=== PATIENT | female | born 1970 | race Caucasian/White ===

== ENCOUNTER → 2020-10-25 16:12 | Outpatient (BNVA) | payer OTHER, SELFPAY | PROVIDERS: PCP Physician Assistant; Visit Provider Nurse Practitioner ==

== ENCOUNTER 2021-04-03 08:32 | Outpatient (REF) | payer OTHER, SELFPAY ==
[2021-04-03 10:58] LABS: Hematocrit 39.6 % (37-47); Hemoglobin 13.2 g/dl (12.0-16.0); Mean Corpuscular HGB Conc 33.3 g/dl (31.0-35.0); Mean Corpuscular Hemoglobin 29.9 pg (27.0-33.0); Mean Corpuscular Volume 89.8 fL (80-98); Mean Platelet Volume 10.7 fL (9.4-12.3); Platelet Count 275 X10*3/uL (160-400); Red Blood Count 4.41 X10*6/uL (4.20-5.50); Red Cell Distribution Width 13.2 % (11.0-16.0); White Blood Count 7.3 X10*3/uL (4.8-10.8)
[2021-04-03 11:42] LABS: Alanine Aminotransferase 15 U/L (0-31); Albumin Level 4.1 g/dL (3.5-5.0); Alkaline Phosphatase 65 U/L (39-117); Anion Gap 11 (12-20); Aspartate Amino Transferase 14 U/L (5-31); Bilirubin Total 0.9 mg/dL (0.0-1.0); Blood Urea Nitrogen 9 mg/dL (9-16); Calcium 9.1 mg/dL (8.4-10.2); Carbon Dioxide 27 mmol/L (22-29); Chloride 106 mmol/L (96-108); Cholesterol 158 mg/dL; Estimated Glomerular Filt Rate > 60; Glucose Fasting 95 mg/dL (60-99); HDL Cholesterol 42 mg/dL; LDL Cholesterol Calculated 97 mg/dl; Potassium 4.8 mmol/L (3.3-5.1); Sodium 139 mmol/L (135-145); Total Protein 6.5 g/dL (6.5-8.0); Triglycerides 97 mg/dL
[2021-04-03 12:05] LABS: TSH reflex Free T4 2.17 uIU/mL (0.32-4.0)
== END 2021-04-03 08:33 | disposition home or self-care (01) ==
LOC: HO.WFDLDS 08:32
PROVIDERS: Visit Provider Physician Assistant
DX: I10 Essential (primary) hypertension (principal); Z13.1 Encounter for screening for diabetes mellitus; Z13.220 Encounter for screening for lipoid disorders; Z13.29 Encounter for screening for other suspected endocrine disorder
CPT/HCPCS: 36415; 80053; 80061; 84443; 85027

== ENCOUNTER 2021-04-06 10:16 | Outpatient (REF) | payer OTHER, SELFPAY ==
--- NOTE | ~2021-04-06 | MM_ITS ---
EXAMINATION: MM SCREENING DIGITAL BREAST TOMOSYNTHESIS, BILATERAL CLINICAL INFORMATION: Screening. Asymptomatic. The lifetime risk of breast cancer based on the Tyrer-Cuzick Model is 12%. COMPARISON: Mammography: 08/16/2019, 07/01/2018, 03/31/2017 TECHNIQUE: Digital breast tomosynthesis is performed in both the craniocaudal and mediolateral oblique views along with computer-aided detection (CAD). Synthesized 2D images are generated from the tomosynthesis. FINDINGS: There are scattered areas of fibroglandular density (ACR BI-RADS breast composition Category b). There are no significant masses, abnormal calcifications, or other abnormalities. Parenchymal pattern is similar to prior studies. No developing density. No significant changes. Skin contours are smooth. MM/MM tomosynthesis screening BI IMPRESSION: No mammographic evidence of malignancy. ASSESSMENT: BI-RADS 1: Negative RECOMMENDATION: Routine annual mammography screening. This patient's information was entered into a reminder system with a target due date for their next mammogram.
== END 2021-04-06 10:17 | disposition home or self-care (01) ==
LOC: HO.MAMMO 10:16
PROVIDERS: Visit Provider Internal Medicine
DX: Z12.31 Encounter for screening mammogram for malignant neoplasm of breast (principal)
CPT/HCPCS: 77063; 77067

== ENCOUNTER 2021-05-10 12:45 | Outpatient (REF) | payer OTHER, SELFPAY ==
[2021-05-10 19:02] LABS: Influenza A PCR NEGATIVE (Negative); Influenza B PCR NEGATIVE (Negative); Resp Syncy Virus RNA Qual PCR NEGATIVE (Negative); SARS COV2 PCR INHOUSE NEGATIVE (Negative)
== END 2021-05-10 12:46 | disposition home or self-care (01) ==
LOC: HO.LAB 12:45
PROVIDERS: Visit Provider Hospitalist
DX: Z20.822 Contact with and (suspected) exposure to COVID-19 (principal); J30.2 Other seasonal allergic rhinitis
CPT/HCPCS: 0241U; 36415

== ENCOUNTER 2021-05-15 14:15 | Outpatient (REF) | payer OTHER, SELFPAY | END 2021-05-15 14:16 | disposition home or self-care (01) | LOC: HO.LAB 14:15 | PROVIDERS: PCP Internal Medicine; Visit Provider Internal Medicine | DX: Z20.822 Contact with and (suspected) exposure to COVID-19 (principal) | CPT/HCPCS: C9803; U0003; U0005 ==

== ENCOUNTER → 2021-05-31 16:25 | Outpatient (BNVA) | payer OTHER, SELFPAY | PROVIDERS: PCP Internal Medicine; Visit Provider Nurse Practitioner ==

== ENCOUNTER 2021-12-04 11:28 | Outpatient (REF) | payer OTHER, SELFPAY ==
--- NOTE | ~2021-12-04 | XR_ITS ---
EXAMINATION: XR LUMBOSACRAL SPINE CLINICAL INFORMATION: Low back pain COMPARISON: 11/10/2008 TECHNIQUE: Three views of the lumbosacral spine. FINDINGS: No acute fracture or traumatic malalignment. Moderate loss of disc space height at L5-S1. Mild loss of disc space at L4-5. Small endplate osteophytes present throughout the lumbar spine. Moderate facet arthropathy present throughout the lumbar spine. Paraspinal soft tissues unremarkable. XR/XR lumbar spine 2-3V IMPRESSION: No acute fracture or traumatic malalignment. Lumbar spondylosis as described.
== END 2021-12-04 11:29 | disposition home or self-care (01) ==
LOC: HO.XRAY 11:28
PROVIDERS: PCP Internal Medicine; Visit Provider Nurse Practitioner Acute Care
DX: M54.50 Low back pain, unspecified (principal)
CPT/HCPCS: 72100

== ENCOUNTER → 2022-01-15 07:54 | Outpatient (BNVA) | payer OTHER, SELFPAY | PROVIDERS: PCP Internal Medicine; Referring Provider Internal Medicine; Visit Provider Nurse Practitioner | DX: K21.9 Gastro-esophageal reflux disease without esophagitis (principal) ==

== ENCOUNTER 2022-04-10 13:50 | Outpatient (REF) | payer OTHER, SELFPAY ==
--- NOTE | ~2022-04-10 | MM_ITS ---
EXAMINATION: MM SCREENING DIGITAL BREAST TOMOSYNTHESIS, BILATERAL CLINICAL INFORMATION: Screening. Asymptomatic. The lifetime risk of breast cancer based on the Tyrer-Cuzick Model is 13.7%. COMPARISON: Mammography: April 06, 2021 and studies dating back to March 28, 2016 TECHNIQUE: Digital breast tomosynthesis is performed in both the craniocaudal and mediolateral oblique views along with computer-aided detection (CAD). Synthesized 2D images are generated from the tomosynthesis. FINDINGS: There are scattered areas of fibroglandular density (ACR BI-RADS breast composition Category b). There are no significant masses, abnormal calcifications, or other abnormalities. MM/MM tomosynthesis screening BI IMPRESSION: No significant changes from prior exam. ASSESSMENT: BI-RADS 1: Negative RECOMMENDATION: Routine annual mammography screening. This patient's information was entered into a reminder system with a target due date for their next mammogram.
== END 2022-04-10 13:51 | disposition home or self-care (01) ==
LOC: HO.MAMMO 13:50
PROVIDERS: PCP Internal Medicine; Visit Provider Internal Medicine
DX: Z12.31 Encounter for screening mammogram for malignant neoplasm of breast (principal)
CPT/HCPCS: 77063; 77067

== ENCOUNTER 2022-08-01 08:38 | Outpatient (REF) | payer OTHER, SELFPAY ==
[2022-08-01 11:14] LABS: MANUAL DIFF FLAG NO
[2022-08-01 11:29] LABS: Appearance Urine Turbid; Color Urine Dark Yellow; Glucose Urine UA Negative (Negative); Leukocyte Esterase Urine Small (1+) (Negative); Nitrite Urine Negative (Negative); PH 5.5 (5.0-9.0); Specific Gravity - Urine >= 1.030 (1.005-1.025); UMIC TRIGGER UA YES; Urine Blood Negative (Negative); Urine Ketones 15 mg/dL (Negative); Urine Protein Trace mg/dL (Neg-Trace)
[2022-08-01 11:36] LABS: Bacteria Urine 1+ (None Seen); Hyaline Casts Urine 0-2 /LPF (0-2)
[2022-08-01 11:38] LABS: Basophils Absolute Auto 0.1 X10*3/uL (0.0-0.2); Basophils Percent Auto 1.1 % (0-2); Eosinophils Absolute Auto 0.1 X10*3/uL (0.0-0.4); Eosinophils Percent Auto 1.1 % (0-4); Hematocrit 40.7 % (37.0-47.0); Hemoglobin 13.7 g/dl (12.0-16.0); Imm Gran Abs Auto 0.02 X10*3/uL (0.00-0.03); Imm Gran Pct Auto 0.3 % (0.0-0.4); Immature Retic Fraction 7.6 % (3.0-15.9); Lymphocytes Absolute Auto 1.4 X10*3/uL (1.2-4.9); Lymphocytes Percent Auto 23.5 % (20-40); Mean Corpuscular HGB Conc 33.7 g/dl (31.0-35.0); Mean Corpuscular Hemoglobin 30.5 pg (27.0-33.0); Mean Corpuscular Volume 90.6 fL (80.0-98.0); Mean Platelet Volume 11.6 fL (9.4-12.3); Monocytes Absolute Auto 0.4 X10*3/uL (0.1-1.2); Monocytes Percent Auto 7.2 % (2-11); Neutrophils Absolute Auto 4.1 x10*3/uL (2.0-8.3); Neutrophils Percent Auto 66.8 % (45-73); Platelet Count 279 X10*3/uL (160-400); Red Blood Count 4.49 X10*6/uL (4.20-5.50); Red Cell Distribution Width 12.9 % (11.0-16.0); Retic HGB Equivalent 35.7 pg (30.0-35.0); Reticulocyte Percent 1.5 % (0.5-1.8); Reticulocytes Absolute 0.067 X10*6/uL (0.026-0.095); White Blood Count 6.1 X10*3/uL (4.8-10.8)
[2022-08-01 13:22] LABS: Folate 13.4 ng/mL (> or = 4.0); Vitamin B12 362 pg/mL (200-900)
[2022-08-01 13:32] LABS: Alanine Aminotransferase 19 U/L (0-31); Albumin Level 4.3 g/dL (3.5-5.0); Alkaline Phosphatase 59 U/L (39-117); Amylase 43 U/L (28-100); Anion Gap 13 (12-20); Aspartate Amino Transferase 17 U/L (5-31); Bilirubin Total 0.8 mg/dL (0.0-1.0); Blood Urea Nitrogen 8 mg/dL (9-16); Calcium 9.5 mg/dL (8.4-10.2); Carbon Dioxide 25 mmol/L (22-29); Chloride 107 mmol/L (96-108); Cholesterol 160 mg/dL; Estimated Glomerular Filt Rate > 60; Ferritin 69 ng/mL (10-250); Free T4 (Free Thyroxine) 0.99 ng/dL (0.71-1.85); Glucose Random 93 mg/dL (60-115); HDL Cholesterol 33 mg/dL; Iron 112 mcg/dL (30-160); LDL Cholesterol Calculated 110 mg/dl; Percent Iron Saturation 36 % (15-50); Potassium 5.1 mmol/L (3.3-5.1); Sodium 140 mmol/L (135-145); Thyroid Stimulating Hormone 2.88 uIU/mL (0.32-4.0); Total Iron Binding Capacity 312 mcg/dL (228-428); Total Protein 6.7 g/dL (6.5-8.0); Triglycerides 85 mg/dL; Unsaturated Iron Binding 200 ug/dL; Uric Acid 6.4 mg/dL (2.4-5.7); Vitamin D 25-OH Total 34.8 ng/mL (>30)
== END 2022-08-01 08:39 | disposition home or self-care (01) ==
LOC: HO.WFDLDS 08:38
PROVIDERS: Visit Provider Internal Medicine
DX: K21.9 Gastro-esophageal reflux disease without esophagitis (principal); N92.0 Excessive and frequent menstruation with regular cycle; E78.00 Pure hypercholesterolemia, unspecified
CPT/HCPCS: 36415; 80053; 80061; 81001; 82150; 82306; 82607; 82728; 82746; 83540; 84439; 84443; 84550; 85025; 85045

== ENCOUNTER → 2023-01-16 15:24 | Outpatient (BNVA) | payer OTHER, SELFPAY | PROVIDERS: PCP Internal Medicine; Referring Provider Internal Medicine; Visit Provider Nurse Practitioner ==

== ENCOUNTER 2023-04-14 14:42 | Outpatient (REF) | payer OTHER, SELFPAY | END 2023-04-14 14:43 | disposition home or self-care (01) | LOC: HO.MAMMO 14:42 | PROVIDERS: PCP Internal Medicine; Visit Provider Internal Medicine | DX: Z12.31 Encounter for screening mammogram for malignant neoplasm of breast (principal) | CPT/HCPCS: 77063; 77067 ==

== ENCOUNTER → 2023-04-14 14:45 | Outpatient (BNV) | payer OTHER, SELFPAY | PROVIDERS: PCP Internal Medicine; Visit Provider Radiology Diagnostic Radiology | DX: Z12.31 Encounter for screening mammogram for malignant neoplasm of breast (principal) | CPT/HCPCS: 77063; 77067 ==

== ENCOUNTER 2023-07-03 08:33 | Outpatient (AMB) | payer OTHER, SELFPAY ==
[2023-07-03 08:40] VITALS: BP 122/70; PULSE 74; O2SAT 98
--- NOTE | 2023-07-03 08:40 | A.OFFPC_ITS ---
Vital Signs 07/03/23 08:40 Height 5 ft 6 in BMI Reason not done Patient refused/unable BP 122/70 Blood Pressure Location Lt brachial Position Sitting Pulse 74 Pulse Source Pulse Oximeter Pulse Oximetry (%) 98 Oxygen Delivery Method Room Air Intake Visit Reasons: physical Intake Note: Patient is feeling fatigue. 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 Allergies Penicillins [PENICILLINS] Allergy (Intermediate, Verified 07/03/23 08:41) RASH penicillin V Allergy (Unknown, Verified 07/03/23 08:41) rash Medication List - Last Reconciled 07/03/23 by Jose De Jesus Ken MD famotidine 40 mg PO DAILY multivitamin 1 tab PO DAILY naproxen 250 mg PO BID PRN norethindrone acetate 2.5 mg PO DAILY Tobacco use date assessed: 07/03/23 Dental Screening Dental Screen Date: 07/03/23 Did you have a dental visit in the last 12 months?: Yes Did you have a dental problem in the last 6 months where you did not have access to dental care?: No Was dental information given to patient?: Patient has dentist HPI physical HPI Details 53-year-old female with bilateral sensor ineural hearing loss, GERD, lumbar spondylosis coming in for physical exam. Last seen last year for physical. Blood work was requested patient's mammogram is up-to-date colonoscopy is up-to-date. Review of the notes was seen by the gastroen terologist January 2023 follow-up on GERD famotidine. Patient had menorrhagia and was seeing gynecology in October 2022 patient had a vaginal procedure/hysteroscopy dilatation curettaged by Dr. Steele still have regular menstruation , occ dizzy. tired all day sleepy when sitting down and after meal sleepy . [facility] Medical History (Updated 07/03/23 @ 09:05 by Jose De Jesus Ken MD) Blood pressure elevated without history of HTN Surgical History History of cochlear implant Hx of breast biopsy Hx of cholecystectomy History of colonoscopy History of esophagogastroduodenoscopy (EGD) Family History (Updated 07/03/23 @ 08:58 by Jose De Jesus Ken MD) Father Skin cancer Diabetes HTN (hypertension) FH: prostate cancer Mother Diabetes HTN (hypertension) Substance abuse Maternal Grandmother Diabetes Maternal Grandfather Diabetes Sister Substance abuse Social History (Updated 07/03/23 @ 08:59 by Jose De Jesus Ken MD) Housing: House Alcohol intake: current Alcohol intake frequency: does not drink Patient Tobacco Use Status: Never used Tobacco e-Cigarette/Vaping Use: Never Used Second Hand Smoke Exposure: No service: No Current occupational status: employed Current occupation: Teacher Cognitive needs: No Hearing needs: Yes (hearing aide) Vision needs: Yes (contact) Questionnaire PHQ-9 Over the last 2 weeks, how often have you been bothered by any of the following problems? 1. Little interest or pleasure in doing things: several days 2. Feeling down, depressed, or hopeless: several days 3. Trouble falling or staying asleep, or sleeping too much: not at all 4. Feeling tired or having little energy: not at all 5. Poor appetite or overeating: not at all 6. Feeling bad about yourself - or that you are a failure or have let yourself or your family down: not at all 7. Trouble concentrating on things, such as reading the newspaper or watching television: not at all 8. Moving or speaking so slowly that other people could have noticed. Or the opposite - being so fidgety or restless that you have been moving around a lot more than usual: not at all 9. Thoughts that you would be better off or of hurting yourself in some way: not at all Total score: 2 Depression Screening Interpretation: Negative Depression Screening Done: Yes Source: Developed by Drs. Anderson Moreno, Ananya Pringle, Alberto Eaton and colleagues, with an educational kelly from [employer]. Thrive Questionnaire Date Thrive assessed: 07/03/23 I am a: Patient What is your living situation today?: I have a steady place to live Within the past 12 months, did the food you bought not last and you didn't have the money to get more?: Never true Within the past 12 months, did you worry whether your food would run out before you got money to buy more?: Never true Do you have trouble paying for medicines?: No Do you have trouble getting transportation to medical appointments?: No Do you have trouble paying your heating and electricity bill?: No Do you have trouble taking care of your child, family member or friend?: No Do you have trouble with day-to-day activities such as bathing, preparing meals, shopping, managing finances, etc.?: No Are you currently unemployed and looking for a job?: No Are you interested in more education?: No Currently or been in a relationship where the following occur: no concerns reported AUDIT C Alcohol Use Questionnaire (AUDIT-C) 1. How often do you have a drink containing alcohol?: Monthly or less Total Score: 1 Score Reviewed/Action Taken: Yes (reviewed, no action needed at this time) ЮЛИЯ-7 AMB Questionnaire ЮЛИЯ-7 Date ЮЛИЯ - 7 assessed: 07/03/23 Feeling nervous, anxious, or on edge: 0 = Not at all Not being able to stop or control worryin = Not at all Worrying too much about different things: 0 = Not at all Trouble relaxin = Not at all Being so restless that it is hard to sit still: 0 = Not at all Becoming easily annoyed or irritable: 0 = Not at all Feeling afraid as if something awful might happen: 0 = Not at all Total ЮЛИЯ-7 score (0-4 normal; 5-9 mild; 10-14 moderate; 15-21 severe): 0 Source: Developed by Drs. Anderson Moreno, Ananya Pringle, Alberto Eaton and colleagues, with an educational kelly from [employer]. ЮЛИЯ-7 Assessment Billing ЮЛИЯ-7 Assessment Tool: ЮЛИЯ-7 Assessment 18214 Review of Systems Const Denies poor appetite and Denies weakness Eyes Denies no additional complaints ENT Reports Normal hearing present, Denies dizziness, Denies nasal congestion, Denies tinnitus and Denies sore throat Card Denies chest pain, Denies syncope, Denies rapid heart rate and Denies dyspnea Resp Denies cough and Denies dyspnea GI Denies change in stool character, Reports constipation, Denies diarrhea, Denies nausea and Denies vomiting Denies urinary frequency, Denies difficulty voiding and Denies dysuria Neuro Reports Normal hearing present, Denies confusion, Denies dizziness, Denies syncope and Denies weakness Psych Denies confusion Physical exam (Primary Care) Vital Signs: Last Vital Signs Pulse 74 07/03/23 08:40 BP 122/70 07/03/23 08:40 Pulse Ox 98 07/03/23 08:40 Oxygen Delivery Method Room Air 07/03/23 08:40 Tobacco/Smoking Status: Tobacco use Status Tobacco use date assessed 07/03/23 07/03/23 08:46 Patient Tobacco Use Status Never used Tobacco 07/03/23 08:59 e-Cigarette/Vaping Use Never Used 07/03/23 08:59 PHQ-9: PHQ-9 Score PHQ-9: Total score 2 07/03/23 08:49 Depression Screening Interpretation: Negative Thrive Assessment: Date of Thrive Assessment Date Thrive assessed 07/03/23 07/03/23 08:46 Currently or been in a relationship where the following occur: no concerns reported Const General: No confusion Orientation/consciousness: No confusion HENMT Head: Yes normocephalic Ears: external ears normal and TM's normal bilaterally Face and sinus: Yes normal facial exam Mouth: moist mucous membranes Throat: Yes tonsils normal Eyes Conjunctivae: conjunctivae normal Pupils: Equal, round and reactive pupils present and Pupil accommodation reflex normal Direct Ophthalmoscopy: normal light reflex Neck Neck: No lymphadenopathy Thyroid: Thyroid normal Chest Chest palpation & inspection: normal inspection of the chest Resp Effort & Inspection: normal respiratory effort and no audible wheezes Auscultation: clear to auscultation bilaterally, no crackles, no wheezes and lung sounds not diminished Cardio Rate: regular rate Rhythm: regular rhythm Peripheral pulses: radial pulses present and dorsalis pedis present GI Palpation (GI): no masses Auscultation: normal bowel sounds and normoactive bowel sounds Rectal Exam - Female: deferred Skin General skin exam: no rashes or lesions noted Rashes: no rashes Neuro General: No confusion Cranial nerves: Yes Equal, round and reactive pupils present and Yes Normal hearing present Cognition (Neuro): normal cognition Gait exam (Neuro): Normal gait present Motor exam (neuro): 5/5 motor strength present throughout Deep tendon reflexes (DTR's): Right brachioradialis reflex intensity grade: 2+, Left brachioradialis reflex intensity grade: 2+, Right patellar reflex intensity grade: 2+ and Left patellar reflex intensity grade: 2+ Extrem General: No edema Immunizations Boostrix Tdap 2.5 Lf unit-8 mcg-5 Lf/0.5 mL intramuscular syringe Performing Provider: Jose De Jesus Ken MD Per[facility] Administered by: Maite Kent CMA on 07/03/23 09:22 Dose Route Admin Location Dispensed Lot Number Expiration Date NDC Practice Assistant 0.5 mL IM Left Deltoid 0.5 mL [id number] 07/23/25 37967-536-71 [employer] VIS Given Date VIS Provided VIS Publication Date 07/03/23 Single Vaccine 21 Eligibility Eligibility Date Funding Source Not [facility] Eligible 07/03/23 Private Assessment and Plan Assessment & Plan (1) Annual physical exam: Code(s): Z00.00 - Encounter for general adult medical examination without abnormal findings (2) GERD (gastroesophageal reflux disease): Code(s): K21.9 - Gastro-esophageal reflux disease without esophagitis Qualifiers: Esophagitis presence: without esophagitis Qualified Code(s): K21.9 - Gastro-esophageal reflux disease without esophagitis Plan: Avoid the foods that causes that usually spicy foods, tomato products, juices, coffee, soda and foods that your sensitive to. After eating do not lie down, allow 3-4 hours before in lie down. And keep the head of bed above 30 degrees to avoid the acid from going up. (3) Menorrhagia: Code(s): N92.0 - Excessive and frequent menstruation with regular cycle Plan: Patient had a D&C October 2022 and follows up with Gynecology (4) Hypersomnia: Code(s): G47.10 - Hypersomnia, unspecified (5) Chest pressure: Code(s): R07.89 - Other chest pain Orders: Orders RT home sleep study Today G47.10 - Hypersomnia, unspecified ECG 12 lead EKG Today R07.89 - Other chest pain Complete Blood Count Auto Diff Today K21.9 - Gastro-esophageal reflux disease without esophagitis Comprehensive Met. Panel Today K21.9 - Gastro-esophageal reflux disease without esophagitis Free T4 (Free Thyroxine) Today K21.9 - Gastro-esophageal reflux disease without esophagitis Lipid Panel Today E78.00 - Pure hypercholesterolemia, unspecified, K21.9 - Gastro-esophageal reflux disease without esophagitis Vitamin D 25-OH Total Today K21.9 - Gastro-esophageal reflux disease without esophagitis Ferritin Today K21.9 - Gastro-esophageal reflux disease without esophagitis IRON PROFILE Today K21.9 - Gastro-esophageal reflux disease without esophagitis CA stress test Today R07.89 - Other chest pain Thyroid Stimulating Hormone Today K21.9 - Gastro-esophageal reflux disease w ithout esophagitis Vitamin B12 and Folate Today K21.9 - Gastro-esophageal reflux disease without esophagitis Magnesium Today K21.9 - Gastro-esophageal reflux disease without esophagitis Reticulocyte Count Today K21.9 - Gastro-esophageal reflux disease without esophagitis UA CC w/rflx Micro + Cult Today K21.9 - Gastro-esophageal reflux disease without esophagitis, R30.0 - Dysuria TDaP Immunization Today Z23 - Encounter for immunization Medications: New ammonium lactate 12% 1 appl topical DAILY 400 grams 0RF K21.9 - Gastro- esophageal reflux disease without esophagitis Coding Level of Care Code Est Pt Prev Care 40-64y(73201) Diagnoses Annual physical exam Z00.00 Gastroesophageal reflux disease without esophagitis K21.9 Esophagitis presence: without esophagitis Menorrhagia N92.0 Hypersomnia G47.10 Chest pressure R07.89 Additional Codes ЮЛИЯ-7 Assessment Billing - ЮЛИЯ-7 Assessment Tool: ЮЛИЯ-7 Assessment 82902 ([id number]) PHQ-9 - 77087 - PHQ-9 Billing: ([id number])
== END 2023-07-03 09:27 | disposition home or self-care (01) ==
PROVIDERS: PCP Internal Medicine; Visit Provider Internal Medicine
DX: Z00.00 Encounter for general adult medical examination without abnormal findings (principal); K21.9 Gastro-esophageal reflux disease without esophagitis; N92.0 Excessive and frequent menstruation with regular cycle; Z23 Encounter for immunization; G47.10 Hypersomnia, unspecified; R07.89 Other chest pain
CPT/HCPCS: 90471; 90715; 99396

== ENCOUNTER 2023-07-03 09:31 | Outpatient (REF) | payer OTHER, SELFPAY ==
[2023-07-03 09:55] LABS: MANUAL DIFF FLAG NO
[2023-07-03 10:26] LABS: Appearance Urine Clear; Color Urine Yellow; Glucose Urine UA Negative (Negative); Leukocyte Esterase Urine Trace (Negative); Nitrite Urine Negative (Negative); PH 6.5 (5.0-9.0); UMIC TRIGGER UACC YES; Urine Blood Negative (Negative); Urine Ketones Negative (Negative); Urine Protein Negative (Neg-Trace)
[2023-07-03 10:28] LABS: Basophils Absolute Auto 0.1 X10*3/uL (0.0-0.2); Basophils Percent Auto 1.3 % (0-2); Eosinophils Absolute Auto 0.1 X10*3/uL (0.0-0.4); Hematocrit 43.9 % (37.0-47.0); Hemoglobin 14.5 g/dl (12.0-16.0); Imm Gran Abs Auto 0.02 X10*3/uL (0.00-0.03); Imm Gran Pct Auto 0.3 % (0.0-0.4); Immature Retic Fraction 6.9 % (3.0-15.9); Lymphocytes Absolute Auto 1.6 X10*3/uL (1.2-4.9); Lymphocytes Percent Auto 25.9 % (20-40); Mean Corpuscular Hemoglobin 29.6 pg (27.0-33.0); Mean Corpuscular Volume 89.6 fL (80.0-98.0); Monocytes Absolute Auto 0.5 X10*3/uL (0.1-1.2); Monocytes Percent Auto 7.6 % (2-11); Neutrophils Absolute Auto 3.8 x10*3/uL (2.0-8.3); Neutrophils Percent Auto 62.9 % (45-73); Platelet Count 258 X10*3/uL (160-400); RET ABN SCTR 1; Red Cell Distribution Width 12.9 % (11.0-16.0); Reticulocytes Absolute 0.073 X10*6/uL (0.026-0.095); White Blood Count 6.1 X10*3/uL (4.8-10.8)
[2023-07-03 10:29] LABS: Reticulocyte Percent 1.5 % (0.5-1.8)
[2023-07-03 10:30] LABS: Bacteria Urine None Seen (None Seen); Hyaline Casts Urine 0-2 /LPF (0-2); WBC Urine 0-5 /HPF (0-5)
[2023-07-03 11:01] LABS: Alanine Aminotransferase 22 U/L (0-31); Albumin Level 4.2 g/dL (3.5-5.0); Alkaline Phosphatase 87 U/L (39-117); Anion Gap 10 (12-20); Aspartate Amino Transferase 18 U/L (5-31); Bilirubin Total 0.4 mg/dL (0.0-1.0); Blood Urea Nitrogen 10 mg/dL (9-16); Calcium 9.5 mg/dL (8.4-10.2); Carbon Dioxide 26 mmol/L (22-29); Chloride 109 mmol/L (96-108); Cholesterol 168 mg/dL (<200); Estimated Glomerular Filt Rate > 60; Glucose Random 94 mg/dL (60-115); HDL Cholesterol 48 mg/dL (>40); Iron 82 mcg/dL (30-160); LDL Cholesterol Calculated 105 mg/dL (<100); Magnesium 2.1 mg/dL (1.6-2.6); Percent Iron Saturation 30 % (15-50); Potassium 4.5 mmol/L (3.3-5.1); Sodium 140 mmol/L (135-145); Total Iron Binding Capacity 276 mcg/dL (228-428); Total Protein 7.2 g/dL (6.5-8.0); Triglycerides 75 mg/dL (<150); Unsaturated Iron Binding 194 ug/dL
[2023-07-03 11:10] LABS: Ferritin 61 ng/mL (10-250); Free T4 (Free Thyroxine) 0.77 ng/dL (0.71-1.85); Thyroid Stimulating Hormone 2.76 uIU/mL (0.32-4.0); Vitamin D 25-OH Total 37.5 ng/mL (>30)
[2023-07-03 11:22] LABS: Folate 16.9 ng/mL (> or = 4.0); Vitamin B12 445 pg/mL (200-900)
== END 2023-07-03 09:32 | disposition home or self-care (01) ==
LOC: HO.LAB 09:31
PROVIDERS: PCP Internal Medicine; Visit Provider Internal Medicine
DX: K21.9 Gastro-esophageal reflux disease without esophagitis (principal); E78.00 Pure hypercholesterolemia, unspecified; D64.9 Anemia, unspecified; E55.9 Vitamin D deficiency, unspecified
CPT/HCPCS: 36415; 80053; 80061; 81001; 82306; 82607; 82728; 82746; 83540; 83735; 84439; 84443; 85025; 85045

== ENCOUNTER → 2023-08-20 15:51 | Outpatient (REF) | payer OTHER, SELFPAY | LOC: HO.SL 15:51 | PROVIDERS: PCP Internal Medicine; Visit Provider Internal Medicine | DX: G47.33 Obstructive sleep apnea (adult) (pediatric) (principal); G47.10 Hypersomnia, unspecified | CPT/HCPCS: 95806 ==

== ENCOUNTER → 2023-08-20 16:00 | Outpatient (BNV) | payer OTHER, SELFPAY | PROVIDERS: PCP Internal Medicine; Visit Provider Internal Medicine | DX: G47.33 Obstructive sleep apnea (adult) (pediatric) (principal) | CPT/HCPCS: 95806 ==

== ENCOUNTER 2023-10-29 14:59 | Outpatient (AMB) | payer OTHER, SELFPAY ==
--- NOTE | 2023-10-29 15:02 | MHC.OFFVIS ---
Intake Vital Signs 10/29/23 15:03 Height 5 ft 6 in BMI Reason not done Patient refused/unable BP 129/73 Blood Pressure Location Lt brachial Position Sitting Pulse 95 Pulse Source Pulse Oximeter Intake Visit Reasons: 6 month follow up Intake Note: Pt presents to the office today for a 6 month follow up for constipation. She states she is feeling well. She states her bowel movements are more normal now and she has a bowel movement everyday. Pt denies any other GI concerns. Allergies Penicillins [PENICILLINS] Allergy (Intermediate, Verified 10/29/23 15:05) RASH penicillin V Allergy (Unknown, Verified 10/29/23 15:05) rash HPI 6 month follow up HPI Details Assessment & Plan (1) GERD (gastroesophageal reflux disease): Code(s): K21.9 - Gastro-esophageal reflux disease without esophagitis Qualifiers: Esophagitis presence: without esophagitis Qualified Code(s): K21.9 - Gastro-esophageal reflux disease without esophagitis Plan: She is concerned taht she needs another colonoscopy - but she is concerned about her CIC and LLQ discomfort. We discuss that this is not an indication fo rscope and she had one in 2018. She has had longstanding constipation an although she moves her bowels every day she will frequently have incomplete evacuation. We discussed trying laxatives for this on a more regular basis in the past but she has been quite reluctant to do this. I explained that a colonoscopy is not diagnostic for pain in this area and it is more likely that she is having cramping or spasm of the colon when too much of a stool burden builds up. Discuss smooth move tea and senna - she uses dulcolax about once a month. I think the using something more gentle more frequently will probably help her with her discomfort in the left lower quadrant. She continues on her famotidine at bedtime but would like to try cutting back on this and I tell her to take it every other day and if she can she can wean completely off of it is only use it as needed when she eats and offending food. ROV 6 mos. (2) Oropharyngeal dysphagia: Comment: No further problems since we started treating her with acid reducing medication so this likely with esophageal spasm Code(s): R13.12 - Dysphagia, oropharyngeal phase (3) Constipation: Code(s): K59.00 - Constipation, unspecified TODAY'S VISIT She did buy the smooth move tea and a trial of senna but she feels that she does not need them since she moves her bowels once a day. She still has a feeling of discomfort in still has the idea that she has a ?hole? in her colon and I explained to her it is not a whole but a pouching that is quite common as we age. She does not have this sensation of discomfort or pain every day but did have it once when she was walking to her mailbox which is pretty nondescriptive. She does have moderate diverticulosis on her 2018 colonoscopy and I let know that doing another colonoscopy is not likely to uncover any more information. Will get a CT scan just to see if she has any signs of inflammation or other concerning features. I think that a trial of dicyclomine when she has the discomfort would be helpful to her since it likely is bowel cramping/spasm which is quite calm in the left lower quadrant. She continues to do well on the famotidine for GERD. Return office visit after the CT scan. [facility] Medical History Annual physical exam Pain in left lumbar region of back Blood pressure elevated without history of HTN Surgical History History of cochlear implant Hx of breast biopsy Hx of cholecystectomy History of colonoscopy History of esophagogastroduodenoscopy (EGD) Family History Father Skin cancer Diabetes HTN (hypertension) FH: prostate cancer Mother Diabetes HTN (hypertension) Substance abuse Maternal Grandmother Diabetes Maternal Grandfather Diabetes Sister Substance abuse Social History Housing: House Alcohol intake: current Alcohol intake frequency: does not drink Patient Tobacco Use Status: Never used Tobacco e-Cigarette/Vaping Use: Never Used Second Hand Smoke Exposure: No service: No Current occupational status: employed Current occupation: Teacher Cognitive needs: No Hearing needs: Yes (hearing aide) Vision needs: Yes (contact) Review of Systems Const Denies fatigue, Denies fever(s), Denies night sweats, Denies poor appetite and Denies weight loss ENT Reports Normal hearing present, Denies dental pain, Denies dysphagia, Denies hearing loss, Denies mouth pain, Denies odynophagia, Denies throat swelling, Denies tongue swelling and Reports other (Dentition adequate) Card Reports no additional complaints Resp Reports no additional complaints GI Details: Reports abdominal pain, Denies melena, Denies bloating, Denies hematochezia, Denies constipation, Denies GI cramping, Denies dysphagia, Denies excessive flatus, Denies early satiety, Reports heartburn, Denies diarrhea, Denies nausea, Denies odynophagia, Denies vomiting and Denies hematemesis Skin/Breast Denies pruritus, Denies lesions, Denies rash and Denies jaundice Neuro Reports Normal hearing present and Denies Abnormal speech present Endo Denies fatigue Aller/Immun Denies throat swelling and Denies tongue swelling Physical Exam Vital Signs: Last Vital Signs Pulse 95 10/29/23 15:03 BP 129/73 10/29/23 15:03 Const General: cooperative, no acute distress, well developed and well groomed Nutritional Appearance: well nourished and obese Orientation/consciousness: oriented to person, oriented to place and oriented to time Limitations: No language barrier HEENT Head: Yes normocephalic and Yes atraumatic Eyes General: appearance normal, both eyes and all related structures Pupils: Equal, round and reactive pupils present Neck Neck: Yes normal visual inspection and Yes no lymphadenopathy Thyroid: Thyroid normal Resp Effort & Inspection: normal respiratory effort and able to speak in complete sentences Auscultation: clear to auscultation bilaterally Cardio Rate: regular rate Rhythm: regular rhythm Heart sounds: Normal, physiologic split S2 sound present Peripheral pulses: radial pulses present and posterior tibial pulses present GI Inspection: No distended, No Abdominal panniculus present and Yes obesity Palpation (GI): Soft to palpation, nontender, no guarding, not rigid and No hepatosplenomegaly present Percussion: Yes normal to percussion Auscultation: normal bowel sounds Rectal Exam - Female: deferred Skin General skin exam: no rashes or lesions noted, turgor normal, skin not dry, no jaundice, No spider nevi and no striae Rashes: no rashes Nails: normal Neuro General: oriented to person, oriented to place and oriented to time Cranial nerves: Yes Equal, round and reactive pupils present and Yes Normal hearing present Speech: No Abnormal speech present Extrem General: Yes normal to inspection, No clubbing, No cyanosis and No edema Psych Appearance: grossly normal and well kempt Mental Status: mental status grossly normal Speech and movement: Normal speech and movement present Affect: normal affect Attitude: cooperative Thought process: Normal thought process present and not confabulating Thought content: Normal thought content present Insight: Limited insight present (Psych) Judgement: Limited judgement present (Psych) Assessment & Plan Assessment & Plan (1) LLQ pain: Code(s): R10.32 - Left lower quadrant pain (2) Constipation: Code(s): K59.00 - Constipation, unspecified (3) GERD (gastroesophageal reflux disease): Code(s): K21.9 - Gastro-esophageal reflux disease without esophagitis Qualifiers: Esophagitis presence: without esophagitis Qualified Code(s): K21.9 - Gastro-esophageal reflux disease without esophagitis (4) Oropharyngeal dysphagia: Comment: No further problems since we started treating her with acid reducing medication so this likely with esophageal spasm Code(s): R13.12 - Dysphagia, oropharyngeal phase Plan She did buy the smooth move tea and a trial of senna but she feels that she does not need them since she moves her bowels once a day. She still has a feeling of discomfort in still has the idea that she has a ?hole? in her colon and I explained to her it is not a whole but a pouching that is quite common as we age. She does not have this sensation of discomfort or pain every day but did have it once when she was walking to her mailbox which is pretty nondescriptive. She does have moderate diverticulosis on her 2018 colonoscopy and I let know that doing another colonoscopy is not likely to uncover any more information. Will get a CT scan just to see if she has any signs of inflammation or other concerning features. I think that a trial of dicyclomine when she has the discomfort would be helpful to her since it likely is bowel cramping/spasm which is quite calm in the left lower quadrant. She continues to do well on the famotidine for GERD. Return office visit after the CT scan. Orders: Orders CT abdomen pelvis w IV con Today R10.32 - Left lower quadrant pain Creatinine Today R10.32 - Left lower quadrant pain Blood Urea Nitrogen Today R10.32 - Left lower quadrant pain Medications: New dicyclomine 20 mg PO QID 30 days PRN 120 tabs 1RF abdominal pain Refilled famotidine 40 mg PO DAILY 90 tabs 2RF K21.9 - Gastro-esophageal reflux disease without esophagitis, R13.12 - Dysphagia, oropharyngeal phase Coding Level of Care Code Est Pt Level 3 (26468) Diagnoses LLQ pain R10.32 Constipation K59.00 Gastroesophageal reflux disease without esophagitis K21.9 Esophagitis presence: without esophagitis Oropharyngeal dysphagia R13.12
[2023-10-29 15:03] VITALS: BP 129/73; PULSE 95
== END 2023-10-29 15:46 | disposition home or self-care (01) ==
PROVIDERS: PCP Internal Medicine; Visit Provider Nurse Practitioner
DX: R10.32 Left lower quadrant pain (principal); K59.00 Constipation, unspecified; K21.9 Gastro-esophageal reflux disease without esophagitis; R13.12 Dysphagia, oropharyngeal phase
CPT/HCPCS: 99213

== ENCOUNTER → 2023-10-29 14:59 | Outpatient (BNVA) | payer OTHER, SELFPAY | PROVIDERS: PCP Internal Medicine; Visit Provider Nurse Practitioner ==

== ENCOUNTER 2023-12-25 13:23 | Outpatient (REF) | payer OTHER, SELFPAY ==
--- NOTE | ~2023-12-25 | CT_ITS ---
EXAMINATION: CT ABDOMEN AND PELVIS WITH CONTRAST CLINICAL INFORMATION: Left lower quadrant pain. COMPARISON: Abdominal ultrasound 02/16/2018. TECHNIQUE: Multidetector volumetric images were obtained from the superior aspect of the liver through the pubic symphysis following administration 85 mL of Omnipaque 350 intravenous contrast. Sagittal and coronal reformatted images were obtained on the technologist's workstation. Oral contrast: Yes This CT examination was performed using dose optimization techniques as appropriate, variously including the following: *Automated exposure control *Adjustment of mA and/or kV according to patient size (this includes techniques or standardized protocols for targeted exams where dose is matched to indication/reason for exam; i.e. extremities or head) *Use of iterative reconstruction technique DLP: 735 mGy-cm FINDINGS: LUNG BASES: The visualized lung bases are unremarkable. LIVER, GALLBLADDER, AND BILIARY TREE: The liver is normal in size, shape, and attenuation. No focal hepatic lesion or biliary ductal dilatation is present. Cholecystectomy. PANCREAS: No discrete mass or ductal dilatation. SPLEEN: Unremarkable. ADRENAL GLANDS: No adrenal mass. KIDNEYS AND URETERS: The kidneys are normal in size, shape, and attenuation. No hydronephrosis, hydroureter, or calculi seen. There is a simple exophytic cyst from the anterior mid left kidney for which no imaging follow-up is recommended. No perinephric stranding. BLADDER: Unremarkable. GASTROINTESTINAL TRACT: The small and large bowel are normal in caliber. Moderate sigmoid diverticulosis without evidence of acute diverticulitis. ABDOMINAL WALL: Small fat-containing umbilical hernia. LYMPH NODES: No adenopathy. VASCULAR: No aortic aneurysm. PELVIC VISCERA: 2.6 cm benign cyst in the simple appearing cyst in the right ovary. No follow-up imaging is recommended. OSSEOUS STRUCTURES: Degenerative changes in the spine. CT/CT abdomen pelvis w IV con IMPRESSION: Moderate sigmoid diverticulosis without evidence of acute diverticulitis. Fleischner guidelines were followed.
[2023-12-25] MEDS: iohexoL 350 MG/ML 100 ML INFUS..BTL 85 ML IV (16:39)
[2023-12-25] MEDS: Barium Sulfate Oral (Mocha) 450 ML ORAL.SUSP 900 ML PO (16:40)
[2023-12-26 13:03] LABS: Creatinine POC 0.8 mg/dL (0.5-1.4); GFR POC > 60
== END 2023-12-25 13:24 | disposition home or self-care (01) ==
LOC: HO.CT 13:23
PROVIDERS: PCP Internal Medicine; Visit Provider Nurse Practitioner
DX: R10.32 Left lower quadrant pain (principal)
CPT/HCPCS: 74177; 82565; Q9967

== ENCOUNTER 2024-03-11 09:04 | Outpatient (AMB) | payer OTHER, SELFPAY ==
--- NOTE | 2024-03-11 09:07 | MHC.OFFVIS ---
Vital Signs 03/11/24 09:10 Height 5 ft 6 in BMI Reason not done Patient refused/unable BP 136/84 Blood Pressure Location Rt brachial Position Sitting Pulse 74 Pulse Source Pulse Oximeter Pulse Oximetry (%) 98 Oxygen Delivery Method Room Air Intake Visit Reasons: f/u diverticulosis Intake Note: Chana presents in office today for a scheduled FUV CC; Pt had CT scan performed as of 12/2023. Pt is also here to discuss sx and progress since last visit. Pt denies any new concerns or sx since their last visit. Pt states that they have remained stable. Pt also requests refill of famotidine. Lye Treater Required: No Allergies Penicillins [PENICILLINS] Allergy (Intermediate, Verified 03/11/24 09:09) RASH penicillin V Allergy (Unknown, Verified 03/11/24 09:09) rash HPI HPI f/u diverticulosis: Details: Assessment & Plan (1) LLQ pain: Code(s): R10.32 - Left lower quadrant pain (2) Constipation: Code(s): K59.00 - Constipation, unspecified (3) GERD (gastroesophageal reflux disease): Code(s): K21.9 - Gastro-esophageal reflux disease without esophagitis Qualifiers: Esophagitis presence: without esophagitis Qualified Code(s): K21.9 - Gastro-esophageal reflux disease without esophagitis (4) Oropharyngeal dysphagia: Comment: No further problems since we started treating her with acid reducing medication so this likely with esophageal spasm Code(s): R13.12 - Dysphagia, oropharyngeal phase Plan She did buy the smooth move tea and a trial of senna but she feels that she does not need them since she moves her bowels once a day. She still has a feeling of discomfort in still has the idea that she has a ?hole? in her colon and I explained to her it is not a whole but a pouching that is quite common as we age. She does not have this sensation of discomfort or pain every day but did have it once when she was walking to her mailbox which is pretty nondescriptive. She does have moderate diverticulosis on her 2018 colonoscopy and I let know that doing another colonoscopy is not likely to uncover any more information. Will get a CT scan just to see if she has any signs of inflammation or other concerning features. I think that a trial of dicyclomine when she has the discomfort would be helpful to her since it likely is bowel cramping/spasm which is quite calm in the left lower quadrant. She continues to do well on the famotidine for GERD. Return office visit after the CT scan. Orders: Orders CT abdomen pelvis w IV con Today R10.32 - Left lower quadrant pain Creatinine Today R10.32 - Left lower quadrant pain Blood Urea Nitrogen Today R10.32 - Left lower quadrant pain Medications: New dicyclomine 20 mg PO QID 30 days PRN 120 tabs 1RF abdominal pain Refilled famotidine 40 mg PO DAILY 90 tabs 2RF K21.9 - Gastro-esophageal reflux disease without esophagitis, R13.12 - Dysphagia, oropharyngeal phase Labs: CT abdomen and pelvis 01/13/24 FINDINGS: LUNG BASES: The visualized lung bases are unremarkable. LIVER, GALLBLADDER, AND BILIARY TREE: The liver is normal in size, shape, and attenuation. No focal hepatic lesion or biliary ductal dilatation is present. Cholecystectomy. PANCREAS: No discrete mass or ductal dilatation. SPLEEN: Unremarkable. ADRENAL GLANDS: No adrenal mass. KIDNEYS AND URETERS: The kidneys are normal in size, shape, and attenuation. No hydronephrosis, hydroureter, or calculi seen. There is a simple exophytic cyst from the anterior mid left kidney for which no imaging follow-up is recommended. No perinephric stranding. BLADDER: Unremarkable. GASTROINTESTINAL TRACT: The small and large bowel are normal in caliber. Moderate sigmoid diverticulosis without evidence of acute diverticulitis. ABDOMINAL WALL: Small fat-containing umbilical hernia. LYMPH NODES: No adenopathy. VASCULAR: No aortic aneurysm. PELVIC VISCERA: 2.6 cm benign cyst in the simple appearing cyst in the right ovary. No follow-up imaging is recommended. OSSEOUS STRUCTURES: Degenerative changes in the spine. CT/CT abdomen pelvis w IV con IMPRESSION: Moderate sigmoid diverticulosis without evidence of acute diverticulitis. TODAY'S VISIT She has not had the pain since her CT. She has taken the bentyl a couple of times, but does not remember if it helps. The CT is benign except for a very small ovarian cyst, so we decide to wait and watch. She will experiment with the bentyl. She continues on famotidine. ROV 3 mos or sooner if pain becomes severe. [facility], [facility] Medical History Annual physical exam Pain in left lumbar region of back Blood pressure elevated without history of HTN Surgical History History of cochlear implant Hx of breast biopsy Hx of cholecystectomy History of colonoscopy History of esophagogastroduodenoscopy (EGD) Family History Father Skin cancer Diabetes HTN (hypertension) FH: prostate cancer Mother Diabetes HTN (hypertension) Substance abuse Maternal Grandmother Diabetes Maternal Grandfather Diabetes Sister Substance abuse Social History Housing: House Alcohol intake: current Alcohol intake frequency: does not drink Patient Tobacco Use Status: Never used Tobacco e-Cigarette/Vaping Use: Never Used Second Hand Smoke Exposure: No service: No Current occupational status: employed Current occupation: Teacher Cognitive needs: No Hearing needs: Yes (hearing aide) Vision needs: Yes (contact) Review of Systems Const Denies fatigue, Denies fever(s), Denies night sweats, Denies poor appetite and Denies weight loss ENT Reports Normal hearing present, Denies dental pain, Denies dysphagia, Reports hearing loss, Denies mouth pain, Denies odynophagia, Denies throat swelling, Denies tongue swelling and Reports other (Dentition adequate) Card Reports no additional complaints Resp Reports no additional complaints GI Details: Denies abdominal pain, Denies melena, Denies bloating, Denies hematochezia, Denies constipation, Reports GI cramping, Denies dysphagia, Denies excessive flatus, Denies early satiety, Reports heartburn, Denies diarrhea, Denies nausea, Denies odynophagia, Denies vomiting and Denies hematemesis Skin/Breast Denies pruritus, Denies lesions, Denies rash and Denies jaundice Neuro Reports Normal hearing present and Denies Abnormal speech present Endo Denies fatigue Aller/Immun Denies throat swelling and Denies tongue swelling Physical Exam Vital Signs: Last Vital Signs Pulse 74 03/11/24 09:10 BP 136/84 03/11/24 09:10 Pulse Ox 98 03/11/24 09:10 Oxygen Delivery Method Room Air 03/11/24 09:10 Const General: cooperative, no acute distress, well developed and well groomed Nutritional Appearance: well nourished and obese Orientation/consciousness: oriented to person, oriented to place and oriented to time Limitations: No language barrier and other limitations HEENT Head: Yes normocephalic and Yes atraumatic Eyes General: appearance normal, both eyes and all related structures Pupils: Equal, round and reactive pupils present Neck Neck: Yes normal visual inspection and Yes no lymphadenopathy Thyroid: Thyroid normal Resp Effort & Inspection: normal respiratory effort and able to speak in complete sentences Auscultation: clear to auscultation bilaterally Cardio Rate: regular rate Rhythm: regular rhythm Heart sounds: Normal, physiologic split S2 sound present Peripheral pulses: radial pulses present and posterior tibial pulses present GI Inspection: No distended, No Abdominal panniculus present and Yes obesity Palpation (GI): Soft to palpation, nontender, no guarding, not rigid and No hepatosplenomegaly present Percussion: Yes normal to percussion Auscultation: normal bowel sounds Rectal Exam - Female: deferred Skin General skin exam: no rashes or lesions noted, turgor normal, skin not dry, no jaundice, No spider nevi and no striae Rashes: no rashes Nails: normal Neuro General: oriented to person, oriented to place and oriented to time Cranial nerves: Yes Equal, round and reactive pupils present and Yes Normal hearing present Speech: No Abnormal speech present Extrem General: Yes normal to inspection, No clubbing, No cyanosis and No edema Psych Appearance: grossly normal and well kempt Mental Status: mental status grossly normal Speech and movement: Normal speech and movement present Affect: normal affect Attitude: cooperative Thought process: Normal thought process present and not confabulating Thought content: Normal thought content present Insight: Good insight present (Psych) Judgement: Good judgement present (Psych) Assessment & Plan Assessment & Plan (1) LLQ pain: Code(s): R10.32 - Left lower quadrant pain Category: Medical (2) GERD (gastroesophageal reflux disease): Code(s): K21.9 - Gastro-esophageal reflux disease without esophagitis Category: Medical Qualifiers: Esophagitis presence: without esophagitis Qualified Code(s): K21.9 - Gastro-esophageal reflux disease without esophagitis (3) Constipation: Code(s): K59.00 - Constipation, unspecified Category: Medical Plan She has not had the pain since her CT. She has taken the bentyl a couple of times, but does not remember if it helps. The CT is benign except for a very small ovarian cyst, so we decide to wait and watch. She will experiment with the bentyl. She continues on famotidine. ROV 3 mos or sooner if pain becomes severe. Medications: Refilled dicyclomine 20 mg PO QID 30 days PRN 120 tabs 1RF abdominal pain famotidine 40 mg PO DAILY 90 tabs 2RF K21.9 - Gastro-esophageal reflux disease without esophagitis, R13.12 - Dysphagia, oropharyngeal phase Coding Level of Care Code Est Pt Level 3 (73848) Diagnoses LLQ pain R10.32 Gastroesophageal reflux disease without esophagitis K21.9 Esophagitis presence: without esophagitis Constipation K59.00
[2024-03-11 09:10] VITALS: BP 136/84; PULSE 74; O2SAT 98
== END 2024-03-11 09:33 | disposition home or self-care (01) ==
PROVIDERS: PCP Internal Medicine; Visit Provider Nurse Practitioner
DX: R10.32 Left lower quadrant pain (principal); K21.9 Gastro-esophageal reflux disease without esophagitis; K59.00 Constipation, unspecified
CPT/HCPCS: 99213

== ENCOUNTER → 2024-03-11 09:04 | Outpatient (BNVA) | payer OTHER, SELFPAY | PROVIDERS: PCP Internal Medicine; Visit Provider Nurse Practitioner ==

== ENCOUNTER → 2024-05-06 15:30 | Outpatient (BNV) | payer OTHER, SELFPAY | PROVIDERS: Visit Provider Internal Medicine | DX: Z12.31 Encounter for screening mammogram for malignant neoplasm of breast (principal) | CPT/HCPCS: 77063; 77067 ==

== ENCOUNTER 2024-05-06 15:49 | Outpatient (REF) | payer OTHER, SELFPAY ==
--- NOTE | ~2024-05-06 | MM_ITS ---
EXAMINATION: MM SCREENING DIGITAL BREAST TOMOSYNTHESIS, BILATERAL CLINICAL INFORMATION: Screening. Asymptomatic. COMPARISON: Mammography: Comparison is made with available priors TECHNIQUE: Digital breast mammography with tomosynthesis is performed in both the craniocaudal and mediolateral oblique views along with computer-aided detection (CAD). FINDINGS: There are scattered areas of fibroglandular density (ACR BI-RADS breast composition Category b). There are no significant masses, abnormal calcifications, or other abnormalities. MM/MM tomosynthesis screening BI IMPRESSION: No mammographic evidence of malignancy. ASSESSMENT: BI-RADS BI-RADS 1 - Negative RECOMMENDATION: Routine annual mammography screening. 1 year F/U This examination should not preclude the clinical evaluation of a suspicious palpable abnormality. This patient's information was entered into a reminder system with a target due date for their next mammogram. Electronically signed by: Candice Waters DO 05/19/2024 11:58 AM EDT
== END 2024-05-06 15:50 | disposition home or self-care (01) ==
LOC: HO.MAMMO 15:49
PROVIDERS: Visit Provider Internal Medicine
DX: Z12.31 Encounter for screening mammogram for malignant neoplasm of breast (principal)
CPT/HCPCS: 77063; 77067

== ENCOUNTER 2024-07-12 08:52 | Outpatient (AMB) | payer OTHER, SELFPAY ==
[2024-07-12 08:55] VITALS: BP 136/68; PULSE 86; O2SAT 97
--- NOTE | 2024-07-12 08:55 | A.OFFPC_ITS ---
Vital Signs 07/12/24 08:55 Height 5 ft 6 in BMI Reason not done Patient refused/unable BP 136/68 Blood Pressure Location Lt brachial Position Sitting Pulse 86 Pulse Source Pulse Oximeter Pulse Oximetry (%) 97 Oxygen Delivery Method Room Air Intake Visit Reasons: Annual Exam Allergies Penicillins [PENICILLINS] Allergy (Intermediate, Verified 07/12/24 08:55) RASH penicillin V Allergy (Unknown, Verified 07/12/24 08:55) rash Medication List - Last Reconciled 07/12/24 by Jose De Jesus Ken MD famotidine 40 mg PO DAILY multivitamin 1 tab PO DAILY norethindrone acetate mg PO Tobacco use date assessed: 07/12/24 Dental Screening Dental Screen Date: 07/12/24 Did you have a dental visit in the last 12 months?: Yes Did you have a dental problem in the last 6 months where you did not have access to dental care?: No Was dental information given to patient?: Patient has dentist HPI Annual Exam HPI Details 54-year-old female with a history of YOSSI D coming in for physical exam last seen in June 2023. Patient's mammogram is up-to-date 05/07/2024 colonoscopy in 2018 10 years. Review of the notes has seen gastroenterology in February 2024 for follow-up for diverticulosis patient had a CT scan in December 2023 showing moderate sigmoid diverticulosis without evidence of diverticulitis taking dicyclomine. Patient also had a sleep study done in August 2023 showing mild sleep apnea with an AHI of 7.7 advised conservative measure of weight reduction and position therapy. Patient did have some nocturnal hypoxemia episode. Patient also has seen Urology in January 2023 for the hematuria renal cyst left will continue to monitor. D and C planned 08/2024. urgent center 2 weeks ago bronchitis doxycycline better now [facility] Medical History (Updated 07/12/24 @ 09:26 by Jose De Jesus Ken MD) Annual physical exam Pain in left lumbar region of back Blood pressure elevated without history of HTN Surgical History (Updated 07/12/24 @ 09:03 by Jose De Jesus Ken MD) History of cochlear implant Hx of breast biopsy Hx of cholecystectomy History of colonoscopy History of esophagogastroduodenoscopy (EGD) Family History (Updated 07/12/24 @ 09:14 by Jose De Jesus Ken MD) Father Skin cancer Diabetes HTN (hypertension) FH: prostate cancer Mother Diabetes HTN (hypertension) Substance abuse Maternal Grandmother Diabetes Maternal Grandfather Diabetes Sister Substance abuse Skin cancer Paternal Grandfather Aortic aneurysm Social History (Updated 07/12/24 @ 09:15 by Jose De Jesus Ken MD) Housing: House Alcohol intake: current Alcohol intake frequency: does not drink Comment: 2 days weekend 1-2 drinks Patient Tobacco Use Status: Never used Tobacco Tobacco use type: Cigarette e-Cigarette/Vaping Use: Never Used Second Hand Smoke Exposure: No service: No Current occupational status: employed Current occupation: Teacher Cognitive needs: No Hearing needs: Yes (hearing aide) Vision needs: Yes (contact) Questionnaire PHQ-9 Over the last 2 weeks, how often have you been bothered by any of the following problems? 1. Little interest or pleasure in doing things: several days 2. Feeling down, depressed, or hopeless: several days 3. Trouble falling or staying asleep, or sleeping too much: not at all 4. Feeling tired or having little energy: not at all 5. Poor appetite or overeating: not at all 6. Feeling bad about yourself - or that you are a failure or have let yourself or your family down: not at all 7. Trouble concentrating on things, such as reading the newspaper or watching television: not at all 8. Moving or speaking so slowly that other people could have noticed. Or the opposite - being so fidgety or restless that you have been moving around a lot more than usual: not at all 9. Thoughts that you would be better off or of hurting yourself in some way: not at all Total score: 2 Depression Screening Interpretation: Negative Depression Screening Done: Yes Source: Developed by Drs. Anderson Moreno, Ananya Pringle, Alberto Eaton and colleagues, with an educational kelly from [employer]. Thrive Questionnaire Date Thrive assessed: 07/12/24 I am a: Patient What is your living situation today?: I have a steady place to live Within the past 12 months, did the food you bought not last and you didn't have the money to get more?: Never true Within the past 12 months, did you worry whether your food would run out before you got money to buy more?: Never true Do you have trouble paying for medicines?: No Do you have trouble getting transportation to medical appointments?: No Do you have trouble paying your heating and electricity bill?: No Do you have trouble taking care of your child, family member or friend?: No Do you have trouble with day-to-day activities such as bathing, preparing meals, shopping, managing finances, etc.?: No Are you currently unemployed and looking for a job?: No Are you interested in more education?: No Please select the resources that you would like help with: None Currently or been in a relationship where the following occur: No concerns reported THRIVE Score: 0 AUDIT C Alcohol Use Questionnaire (AUDIT-C) 1. How often do you have a drink containing alcohol?: 2-4 times a month 2. How many drinks containing alcohol do you have on a typical day when you are drinking?: 1 or 2 3. How often do you have six or more drinks on one occasion?: Never Total Score: 2 ЮЛИЯ-7 AMB Questionnaire ЮЛИЯ-7 Date ЮЛИЯ - 7 assessed: 07/12/24 Feeling nervous, anxious, or on edge: 0 = Not at all Not being able to stop or control worryin = Not at all Worrying too much about different things: 0 = Not at all Trouble relaxin = Several days Being so restless that it is hard to sit still: 0 = Not at all Becoming easily annoyed or irritable: 1 = Several days Feeling afraid as if something awful might happen: 0 = Not at all Total ЮЛИЯ-7 score (0-4 normal; 5-9 mild; 10-14 moderate; 15-21 severe): 2 Source: Developed by Drs. Anderson Moreno, Ananya Pringle, Alberto Eaton and colleagues, with an educational kelly from [employer]. Review of Systems Const Denies poor appetite and Denies weakness Eyes Denies no additional complaints ENT Reports Normal hearing present, Denies dizziness, Denies nasal congestion, Denies tinnitus and Denies sore throat Card Denies chest pain, Denies syncope, Denies rapid heart rate and Denies dyspnea Resp Denies cough and Denies dyspnea GI Denies change in stool character, Reports constipation, Denies diarrhea, Denies nausea and Denies vomiting Denies urinary frequency, Denies difficulty voiding and Denies dysuria Neuro Reports Normal hearing present, Denies confusion, Denies dizziness, Denies syncope and Denies weakness Psych Denies confusion Physical exam (Primary Care) Vital Signs: Last Vital Signs Pulse 86 07/12/24 08:55 BP 136/68 07/12/24 08:55 Pulse Ox 97 07/12/24 08:55 Oxygen Delivery Method Room Air 07/12/24 08:55 Tobacco/Smoking Status: Tobacco use Status Tobacco use date assessed 07/12/24 07/12/24 09:01 Patient Tobacco Use Status Never used Tobacco 07/12/24 09:01 Tobacco use type Cigarette 07/12/24 09:01 e-Cigarette/Vaping Use Never Used 07/12/24 09:01 PHQ-9: PHQ-9 Score PHQ-9: Total score 2 07/12/24 09:01 Depression Screening Interpretation: Negative Thrive Assessment: Date of Thrive Assessment Date Thrive assessed 07/12/24 07/12/24 09:01 Currently or been in a relationship where the following occur: No concerns reported Const General: No confusion Orientation/consciousness: No confusion HENMT Head: Yes normocephalic Ears: external ears normal and TM's normal bilaterally Face and sinus: Yes normal facial exam Mouth: moist mucous membranes Throat: Yes tonsils normal Eyes Conjunctivae: conjunctivae normal Pupils: Equal, round and reactive pupils present and Pupil accommodation reflex normal Direct Ophthalmoscopy: normal light reflex Neck Neck: No lymphadenopathy Thyroid: Thyroid normal Chest Chest palpation & inspection: normal inspection of the chest Resp Effort & Inspection: normal respiratory effort and no audible wheezes Auscultation: clear to auscultation bilaterally, no crackles, no wheezes and lung sounds not diminished Cardio Rate: regular rate Rhythm: regular rhythm Peripheral pulses: radial pulses present and dorsalis pedis present GI Palpation (GI): no masses Auscultation: normal bowel sounds and normoactive bowel sounds Rectal Exam - Female: deferred Skin General skin exam: no rashes or lesions noted Rashes: no rashes Neuro General: No confusion Cranial nerves: Yes Equal, round and reactive pupils present and Yes Normal hearing present Cognition (Neuro): normal cognition Gait exam (Neuro): Normal gait present Motor exam (neuro): 5/5 motor strength present throughout Deep tendon reflexes (DTR's): Right brachioradialis reflex intensity grade: 2+, Left brachioradialis reflex intensity grade: 2+, Right patellar reflex intensity grade: 2+ and Left patellar reflex intensity grade: 2+ Extrem General: No edema Coding Level of Care Code Est Pt Prev Care 40-64y(53493) Diagnoses Annual physical exam Z00.00 Gastroesophageal reflux disease without esophagitis K21.9 Esophagitis presence: without esophagitis Nocturnal hypoxemia G47.34 Diverticular disease K57.90 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 (2) GERD (gastroesophageal reflux disease): Code(s): K21.9 - Gastro-esophageal reflux disease without esophagitis Category: Medical Qualifiers: Esophagitis presence: without esophagitis Qualified Code(s): K21.9 - Gastro-esophageal reflux disease without esophagitis Plan: Avoid the foods that causes that usually spicy foods, tomato products, juices, coffee, soda and foods that your sensitive to. After eating do not lie down, allow 3-4 hours before in lie down. And keep the head of bed above 30 degrees to avoid the acid from going up. (3) Nocturnal hypoxemia: Code(s): G47.34 - Idiopathic sleep related nonobstructive alveolar hypoventilation Category: Medical Plan: Discussed with the patient that the August sleep study revealed some nocturnal hypoxemia. Concern about pulmonary problem (4) Diverticular disease: Code(s): K57.90 - Diverticulosis of intestine, part unspecified, without perforation or abscess without bleeding Category: Medical Plan: Three rules for constipation 1. Diet need to have a high fiber diet less of meat 2. Increase oral fluids 3. Exercise (5) Olfaction disorder: Code(s): R43.9 - Unspecified disturbances of smell and taste Category: Medical Plan: will see ENT (6) Obesity: Code(s): E66.9 - Obesity, unspecified Category: Medical Plan: referral to nutrition (7) History of cochlear implant: Comment: 2012 Code(s): Z96.21 - Cochlear implant status Category: Surgical Plan: decline pneumonia shot for now- advised to ff up with ENT Dr. Janet Orders: Orders Complete Blood Count Auto Diff Today K57.90 - Diverticulosis of intestine, part unspecified, without perforation or abscess without bleeding Free T4 (Free Thyroxine) Today K57.90 - Diverticulosis of intestine, part unspecified, without perforation or abscess without bleeding Thyroid Stimulating Hormone Today K57.90 - Diverticulosis of intestine, part unspecified, without perforation or abscess without bleeding Lipid Panel Today E78.00 - Pure hypercholesterolemia, unspecified, K57.90 - Diverticulosis of intestine, part unspecified, without perforation or abscess without bleeding Vitamin B12 and Folate Today K57.90 - Diverticulosis of intestine, part unspecified, without perforation or abscess without bleeding Hemoglobin A1c Today K57.90 - Diverticulosis of intestine, part unspecified, without perforation or abscess without bleeding Overnight Pulse Oximetry Today G47.34 - Idiopathic sleep related nonobstructive alveolar hypoventilation Comprehensive Met. Panel Today K57.90 - Diverticulosis of intestine, part unspecified, without perforation or abscess without bleeding Vitamin D 25-OH Total Today K57.90 - Diverticulosis of intestine, part unspecified, without perforation or abscess without bleeding PFT pulmonary function test Today G47.34 - Idiopathic sleep related nonobstructive alveolar hypoventilation Referrals Nutrition/Dietitian Referral E66.9 - Obesity, unspecified
== END 2024-07-12 09:39 | disposition home or self-care (01) ==
PROVIDERS: PCP Internal Medicine; Visit Provider Internal Medicine
DX: Z00.00 Encounter for general adult medical examination without abnormal findings (principal); K21.9 Gastro-esophageal reflux disease without esophagitis; E66.9 Obesity, unspecified; G47.34 Idiopathic sleep related nonobstructive alveolar hypoventilation; K57.90 Diverticulosis of intestine, part unspecified, without perforation or abscess without bleeding; R43.9 Unspecified disturbances of smell and taste; Z96.21 Cochlear implant status

== ENCOUNTER 2024-08-25 15:32 | Outpatient (REF) | payer OTHER, SELFPAY ==
[2024-08-25 17:34] LABS: MANUAL DIFF FLAG NO
[2024-08-25 17:59] LABS: Basophils Absolute Auto 0.1 X10*3/uL (0.0-0.2); Basophils Percent Auto 0.9 % (0-2); Eosinophils Absolute Auto 0.1 X10*3/uL (0.0-0.4); Eosinophils Percent Auto 1.4 % (0-4); Hematocrit 41.3 % (37.0-47.0); Hemoglobin 14.1 g/dl (12.0-16.0); Imm Gran Abs Auto 0.03 X10*3/uL (0.00-0.03); Imm Gran Pct Auto 0.4 % (0.0-0.4); Mean Corpuscular HGB Conc 34.1 g/dl (31.0-35.0); Mean Corpuscular Volume 87.9 fL (80.0-98.0); Mean Platelet Volume 10.6 fL (9.4-12.3); Monocytes Absolute Auto 0.6 X10*3/uL (0.1-1.2); Monocytes Percent Auto 7.7 % (2-11); Neutrophils Absolute Auto 5.1 x10*3/uL (2.0-8.3); Neutrophils Percent Auto 64.6 % (45-73); Platelet Count 338 X10*3/uL (160-400); Red Cell Distribution Width 13.4 % (11.0-16.0); White Blood Count 7.9 X10*3/uL (4.8-10.8)
[2024-08-25 18:15] LABS: Alanine Aminotransferase 22 U/L (0-31); Alkaline Phosphatase 50 U/L (39-117); Anion Gap 13 (12-20); Aspartate Amino Transferase 19 U/L (5-31); Bilirubin Total 0.5 mg/dL (0.0-1.0); Blood Urea Nitrogen 11 mg/dL (9-16); Calcium 8.9 mg/dL (8.4-10.2); Carbon Dioxide 23 mmol/L (22-29); Chloride 110 mmol/L (96-108); Cholesterol 185 mg/dL (<200); Estimated Glomerular Filt Rate > 60; Glucose Random 86 mg/dL (60-115); HDL Cholesterol 30 mg/dL (>40); LDL Cholesterol Calculated 130 mg/dL (<100); Potassium 4.2 mmol/L (3.3-5.1); Sodium 142 mmol/L (135-145); Total Protein 6.9 g/dL (6.5-8.0); Triglycerides 125 mg/dL (<150)
[2024-08-25 18:35] LABS: Free T4 (Free Thyroxine) 0.95 ng/dL (0.71-1.85); Thyroid Stimulating Hormone 2.74 uIU/mL (0.32-4.0)
[2024-08-25 18:42] LABS: Folate 15.4 ng/mL (> or = 4.0); Vitamin B12 285 pg/mL (200-900)
[2024-08-26 07:02] LABS: Estimated Average Glucose 100 mg/dL; Hemoglobin A1c % 5.1 % (<6.0); Total Hemoglobin (HGBA1C) 3633.6749 umol/L
== END 2024-08-25 15:33 | disposition home or self-care (01) ==
LOC: HO.WFDLDS 15:32
PROVIDERS: Visit Provider Internal Medicine
DX: K57.90 Diverticulosis of intestine, part unspecified, without perforation or abscess without bleeding (principal); E78.00 Pure hypercholesterolemia, unspecified; Z13.1 Encounter for screening for diabetes mellitus
CPT/HCPCS: 36415; 80053; 80061; 82306; 82607; 82746; 83036; 84439; 84443; 85025

== ENCOUNTER 2024-09-16 15:47 | Outpatient (REF) | payer OTHER, SELFPAY ==
--- NOTE | 2024-09-16 15:51 | PFT_ITS ---
Flows: FEV1: 81 % of predicted at 2.24 L FVC: 80 % of predicted at 2.82 L FEV1/FVC: 79 % Bronchodilator response: Absent Volumes: Total lung capacity: 73 % of predicted at 4.01 L Residual volume: 67 % of predicted at 1.18 L Slow vital capacity: 75 % of predicted at 2.82 L Expiratory reserve volume: 76 % of predicted at 0.75 L Diffusion capacity: Normal Impression: Mild restrictive ventilatory defect with no bronchodilator response. Decreased expiratory reserve volume suggests extrathoracic restriction likely secondary to abdominal obesity. MTDD
== END 2024-09-16 15:48 | disposition home or self-care (01) ==
LOC: HO.RESP 15:47
PROVIDERS: PCP Internal Medicine; Visit Provider Internal Medicine
DX: G47.34 Idiopathic sleep related nonobstructive alveolar hypoventilation (principal)
CPT/HCPCS: 94010; 94640; 94727; 94729

== ENCOUNTER → 2024-09-16 15:51 | Outpatient (BNV) | payer OTHER, SELFPAY | PROVIDERS: PCP Internal Medicine; Visit Provider Internal Medicine Pulmonary Disease | DX: G47.34 Idiopathic sleep related nonobstructive alveolar hypoventilation (principal); G47.36 Sleep related hypoventilation in conditions classified elsewhere | CPT/HCPCS: 94060; 94727; 94729 ==

== ENCOUNTER 2024-10-18 16:38 | Outpatient (AMB) | payer OTHER, SELFPAY ==
--- NOTE | 2024-10-18 16:40 | MHC.PC.OV ---
Vital Signs 10/18/24 16:46 Height 5 ft 6 in BMI Reason not done Patient refused/unable BP 168/108 H Blood Pressure Location Lt brachial Position Sitting Pulse 84 Pulse Source Pulse Oximeter Temp 97.1 F Temp Source Temporal Artery Scan Pulse Oximetry (%) 97 Oxygen Delivery Method Room Air Intake Visit Reasons: nocturnal hypoxemia Allergies Penicillins [PENICILLINS] Allergy (Intermediate, Verified 07/12/24 08:55) RASH penicillin V Allergy (Unknown, Verified 07/12/24 08:55) rash Medication List - Last Reconciled 10/18/24 by Jose De Jesus Ken MD famotidine 40 mg PO DAILY multivitamin 1 tab PO DAILY norethindrone acetate mg PO semaglutide (weight loss) (Wegovy) 0.25 mg (0.5 mL) subcut QWEEK Tobacco use date assessed: 07/12/24 Dental Screening Dental Screen Date: 07/12/24 [facility] Medical History (Updated 10/18/24 @ 17:12 by Jose De Jesus Ken MD) Blood pressure elevated without history of HTN Annual physical exam Pain in left lumbar region of back Surgical History (Updated 07/12/24 @ 09:03 by Jose De Jesus Ken MD) History of cochlear implant Hx of breast biopsy Hx of cholecystectomy History of colonoscopy History of esophagogastroduodenoscopy (EGD) Family History (Updated 07/12/24 @ 09:14 by Jose De Jesus Ken MD) Father Skin cancer Diabetes HTN (hypertension) FH: prostate cancer Mother Diabetes HTN (hypertension) Substance abuse Maternal Grandmother Diabetes Maternal Grandfather Diabetes Sister Substance abuse Skin cancer Paternal Grandfather Aortic aneurysm Social History (Updated 07/12/24 @ 09:15 by Jose De Jesus Ken MD) Housing: House Alcohol intake: current Alcohol intake frequency: does not drink Comment: 2 days weekend 1-2 drinks Patient Tobacco Use Status: Never used Tobacco Tobacco use type: Cigarette e-Cigarette/Vaping Use: Never Used Second Hand Smoke Exposure: No service: No Current occupational status: employed Current occupation: Teacher Cognitive needs: No Hearing needs: Yes (hearing aide) Vision needs: Yes (contact) Questionnaire Thrive Questionnaire Date Thrive assessed: 10/18/24 I am a: Patient What is your living situation today?: I have a steady place to live Within the past 12 months, did the food you bought not last and you didn't have the money to get more?: Never true Within the past 12 months, did you worry whether your food would run out before you got money to buy more?: Never true Do you have trouble paying for medicines?: No Do you have trouble getting transportation to medical appointments?: No Do you have trouble paying your heating and electricity bill?: No Do you have trouble taking care of your child, family member or friend?: No Do you have trouble with day-to-day activities such as bathing, preparing meals, shopping, managing finances, etc.?: No Are you currently unemployed and looking for a job?: No Are you interested in more education?: No Please select the resources that you would like help with: None Currently or been in a relationship where the following occur: No concerns reported THRIVE Score: 0 AUDIT C Alcohol Use Questionnaire (AUDIT-C) 2. How many drinks containing alcohol do you have on a typical day when you are drinking?: 1 or 2 3. How often do you have six or more drinks on one occasion?: Never Total Score: 0 ЮЛИЯ-7 AMB Questionnaire ЮЛИЯ-7 Date ЮЛИЯ - 7 assessed: 07/12/24 Source: Developed by Drs. Anderson Moreno, Ananya Pringle, Alberto Eaton and colleagues, with an educational kelly from [employer]. Physical exam (Primary Care) Vital Signs: Last Vital Signs Temp 97.1 F 10/18/24 16:46 Pulse 84 10/18/24 16:46 BP 168/108 H 10/18/24 16:46 Pulse Ox 97 10/18/24 16:46 Oxygen Delivery Method Room Air 10/18/24 16:46 Tobacco/Smoking Status: Tobacco use Status Tobacco use date assessed 07/12/24 10/18/24 16:40 Patient Tobacco Use Status Never used Tobacco 10/18/24 16:40 Tobacco use type Cigarette 10/18/24 16:40 e-Cigarette/Vaping Use Never Used 10/18/24 16:40 Thrive Assessment: Date of Thrive Assessment Date Thrive assessed 10/18/24 10/18/24 16:40 Currently or been in a relationship where the following occur: No concerns reported Const General: alert; No acute distress Eyes Conjunctivae: conjunctivae normal Resp Auscultation: clear to auscultation bilaterally Cardio Rate: regular rate Rhythm: regular rhythm GI Inspection: Yes normal to inspection Extrem General: Yes normal to inspection and No edema Coding Level of Care Code Est Pt Level 4 (67303) Diagnoses Obesity E66.9 Nocturnal hypoxemia G47.34 Gastroesophageal reflux disease without esophagitis K21.9 Esophagitis presence: without esophagitis Blood pressure elevated without history of HTN R03.0 Assessment & Plan Assessment & Plan (1) Obesity: Code(s): E66.9 - Obesity, unspecified Category: Medical Plan: Diet and exercise. We go the prescription sent to the pharmacy patient is also going to be seen by nutrition (2) Nocturnal hypoxemia: Code(s): G47.34 - Idiopathic sleep related nonobstructive alveolar hypoventilation Category: Medical Plan: Patient had a pulmonary function test showing restrictive lung disease most likely from the weight (3) GERD (gastroesophageal reflux disease): Code(s): K21.9 - Gastro-esophageal reflux disease without esophagitis Category: Medical Qualifiers: Esophagitis presence: without esophagitis Qualified Code(s): K21.9 - Gastro-esophageal reflux disease without esophagitis Plan: Avoid the foods that causes that usually spicy foods, tomato products, juices, coffee, soda and foods that your sensitive to. After eating do not lie down, allow 3-4 hours before in lie down. And keep the head of bed above 30 degrees to avoid the acid from going up. (4) Blood pressure elevated without history of HTN: Code(s): R03.0 - Elevated blood-pressure reading, without diagnosis of hypertension Category: Medical Plan: Discussed about the elevated blood pressure. Advised to monitor blood pressure at home as well as to check it here also. Discussed about salt intake need to decrease. Plan History of Present Illness The patient is a 54-year-old female presenting for a follow-up on obesity, hypertension, GERD, and postoperative care. She has chronic severe hypertension, GERD, and recent uterine fibroid surgery with no noted complications. Blood pressure readings have been elevated, but lifestyle factors, including diet, may impact this; home monitoring is recommended. The patient is noted for mild restrictive ventilatory defect, related to obesity. Lab tests show hyperlipidemia, and her low vitamin B12 is thought to be from dietary changes. Menopausal symptoms may affect weight loss efforts, and she inquires about pharmacological interventions like Wegovy. Health Maintenance - Pulmonary function test in August 2022 showed mild restrictive ventilatory defect, likely due to obesity. - Blood work on August 25, 2022: normal blood count, electrolytes, renal, and liver function; LDL cholesterol at 130 mg/dL. - Vitamin B12 slightly below desired levels; dietary intake adjusted to include B12 sources other than red meat. - Recommendations to continue monitoring blood pressure regularly at home. - Discussions regarding the potential use of weight management medication (Wegovy), contingent upon insurance approval. Social History - The patient has adopted dietary changes, reducing sugar, chocolate, chips, and animal proteins. - Reports limited meat consumption, favors chicken, avocados, and chickpeas. - Significant reduction in cheese intake due to concerns over cholesterol. - Exercises frequently, although reports challenges with weight loss potentially related to menopause. Review of Systems - Cardiovascular: Reports previously elevated blood pressure readings. - Musculoskeletal: Denies musculoskeletal pain or issues. - Neurological: Denies headaches, dizziness, or visual changes. - General: Denies current symptoms of fatigue, fever, or weight gain beyond that discussed. Physical Exam Results - Labs: Blood work (normal counts and electrolytes, LDL 130 mg/dL, low vitamin B12) - Test: Pulmonary function test from August showed mild restrictive pattern. Plan To address hypertension, I propose home blood pressure monitoring to assess more accurate readings. For hyperlipidemia, dietary measures are emphasized, and future pharmacotherapy may be considered if necessary. For weight management and associated comorbidities, we will explore pharmacological assistance through Wegovy pending insurance approval. Observation following recent surgery remains unremarkable for complications at this time. Additional consultation with endocrinology may aid in the comprehensive management of weight and menopausal symptoms. Patient was informed and verbally consented to the use of an ambient scribe for clinic note documentation during this visit. Discussion Notes During today's visit, we reviewed the patient's elevated blood pressure and the importance of monitoring it at home for accurate readings, considering office measurements may not reflect true control. Hyperlipidemia management involves dietary regulation; however, medication may be explored if levels persist upwards. We discussed the potential for Wegovy to support weight loss efforts, acknowledging insurance may dictate accessibility. Risks include exacerbated heartburn, given existing GERD. Postoperative recovery from fibroid removal is uneventful, but continued monitoring is recommended. Follow-up in endocrinology will further address weight and hormonal considerations. Consistent vitamin B12 levels should improve with non-meat dietary adjustments. [place] [facility] indicated prompt communication should any complications or symptoms arise or require assessment before the planned follow-up. Patient Instructions - Monitor blood pressure at home three times a week and record readings. - Maintain a low-cholesterol and heart-healthy diet. - Consider incorporating more B29-ebtb foods besides meat, such as dairy and fish. - Continue regular physical activity to aid in weight management. - Follow-up with endocrinology for weight management and menopause-related concerns. - Alert our office if there are any significant changes in blood pressure or if new symptoms develop. - Await notification regarding insurance coverage for weight management options like Wegovy. Medications: New semaglutide (weight loss) (Wegovy) administer weeks 1 through 4 of therapy 0.25 mg (0.5 mL) subcut QWEEK 2 mL 1RF E66.9 - Obesity, unspecified semaglutide (weight loss) (Wegovy) administer weeks 1 through 4 of therapy 0.25 mg (0.5 mL) subcut QWEEK 2 mL 1RF E66.9 - Obesity, unspecified
[2024-10-18 16:46] VITALS: BP 168/108; PULSE 84; TEMP 36.2; O2SAT 97
== END 2024-10-18 17:16 | disposition home or self-care (01) ==
PROVIDERS: PCP Internal Medicine; Visit Provider Internal Medicine
DX: K21.9 Gastro-esophageal reflux disease without esophagitis (principal); E66.9 Obesity, unspecified; G47.34 Idiopathic sleep related nonobstructive alveolar hypoventilation; R03.0 Elevated blood-pressure reading, without diagnosis of hypertension

== ENCOUNTER → 2024-10-18 16:38 | Outpatient (BNVA) | payer OTHER, SELFPAY | PROVIDERS: PCP Internal Medicine; Visit Provider Internal Medicine ==

== ENCOUNTER 2024-11-04 14:14 | Outpatient (AMB) | payer OTHER, SELFPAY ==
--- NOTE | 2024-11-04 14:46 | A.OFFVIS_ITS ---
VS Expanded 11/04/24 14:48 11/16/24 21:11 Height 5 ft 6 in 5 ft 6 in Weight 223 lb 15.834 oz 224 lb BMI 36.1 36.2 Intake Visit Reasons: obesity Allergies Penicillins [PENICILLINS] Allergy (Intermediate, Verified 07/12/24 08:55) RASH penicillin V Allergy (Unknown, Verified 07/12/24 08:55) rash Nutrition Presentation Details: Pt presents for MNT obsity , HTN food frequency fruit: 1/day fish : 1-2 x/wk milk: 0x/wk legumes/beams : 3 x/wk starches >25 etoh/smoking-- physical activity -- BS Monitoring Most Recent Diabetes Results: Cholesterol 185 mg/dL (<200) 08/25/24 HDL Cholesterol 30 mg/dL (>40) L 08/25/24 Triglycerides 125 mg/dL (<150) 08/25/24 Creatinine 0.86 mg/dL (0.5-1.4) 08/25/24 Blood Urea Nitrogen 11 mg/dL (9-16) 08/25/24 Sodium 142 mmol/L (135-145) 08/25/24 Potassium 4.2 mmol/L (3.3-5.1) 08/25/24 Chloride 110 mmol/L (96-108) H 08/25/24 Carbon Dioxide 23 mmol/L (22-29) 08/25/24 Calcium 8.9 mg/dL (8.4-10.2) 08/25/24 AST 19 U/L (5-31) 08/25/24 ALT 22 U/L (0-31) 08/25/24 Total Protein 6.9 g/dL (6.5-8.0) 08/25/24 Albumin 4.0 g/dL (3.5-5.0) 08/25/24 DTY-Yfanxap-Pa.Jeor Equation Height: 5 ft 6 in Weight: 224 lb Resting Metabolic Rate: 1626.26 Calculated Activity Level: Sedentary Calories Needed to Maintain Weight: 1951.51 Diagnosis Nutrition problem #1: overweight/obesity As related to (etiology) #1: diagnosis As evidenced by (sign/symptom) #1: high BMI (bmi at 36.2 (11/09)) [facility] Medical History (Updated 10/18/24 @ 17:12 by Jose De Jesus Ken MD) Blood pressure elevated without history of HTN Annual physical exam Pain in left lumbar region of back Surgical History (Updated 07/12/24 @ 09:03 by Jose De Jesus Ken MD) History of cochlear implant Hx of breast biopsy Hx of cholecystectomy History of colonoscopy History of esophagogastroduodenoscopy (EGD) Family History (Updated 07/12/24 @ 09:14 by Jose De Jesus Ken MD) Father Skin cancer Diabetes HTN (hypertension) FH: prostate cancer Mother Diabetes HTN (hypertension) Substance abuse Maternal Grandmother Diabetes Maternal Grandfather Diabetes Sister Substance abuse Skin cancer Paternal Grandfather Aortic aneurysm Social History (Updated 07/12/24 @ 09:15 by Jose De Jesus Ken MD) Housing: House Alcohol intake: current Alcohol intake frequency: does not drink Comment: 2 days weekend 1-2 drinks Patient Tobacco Use Status: Never used Tobacco Tobacco use type: Cigarette e-Cigarette/Vaping Use: Never Used Second Hand Smoke Exposure: No service: No Current occupational status: employed Current occupation: Teacher Cognitive needs: No Hearing needs: Yes (hearing aide) Vision needs: Yes (contact) Assessment & Plan Assessment & Plan (1) Obesity: Code(s): E66.9 - Obesity, unspecified Category: Medical Plan: Wt: 102 Kg ( 11/09 ) Est kcal needs as per MSJ: 2000 (40% carb, 30% protein/fat) Est fluid needs as per 25-30 ml/d: 3100 Est prot per day as per 1 g/kg bw: 102 Recommend fiber intake : 8-10 g per day and gradually increase to 25-28 g per day for women and 35-38 g for men or as tolerated Recommend sodium intake per day : less than 2000 mg Educated patient on: ( R = reviewed V = verbalizes understanding N/R = needs review N/A = not applicable * Food sources of carbohydrate, adequate serving sizes and its role in various health conditions: R * Differences between complex carbohydrates a simple carbohydrates, role of fiber in diet: R * Lean protein sources of foods: R * Differences between types of fats and role in diet (mono on saturated fat fatty acids, saturated fatty acids, trans fats): R basic * Food sources of sodium in salt and healthy modifications for heart health in kidney health: R V R/V * Vitamins and minerals: R V N/R * Healthy plate method concept: R * Physical activity: Benefits a precaution: R V N/R * Patient Instructions: Practice mindful eating Work on reducing total carb per meal to less than 45 and snack 0-20 g carb follow healthy plate method Coding Level of Care Code Nutr Indiv Intake (62352) Diagnoses Obesity E66.9 Time Spent (min) 30
[2024-11-04 14:48] VITALS: BMI 36.1
[2024-11-16 21:11] VITALS: BMI 36.2
== END 2024-11-04 15:23 | disposition home or self-care (01) ==
LOC: HO.ENCR 14:15
PROVIDERS: PCP Internal Medicine; Visit Provider Dietitian, Registered
DX: E66.9 Obesity, unspecified (principal)

== ENCOUNTER → 2024-11-04 14:14 | Outpatient (BNVA) | payer OTHER, SELFPAY | PROVIDERS: PCP Internal Medicine; Visit Provider Dietitian, Registered | DX: E66.9 Obesity, unspecified (principal); I10 Essential (primary) hypertension; Z71.3 Dietary counseling and surveillance; Z68.36 Body mass index [BMI] 36.0-36.9, adult | CPT/HCPCS: 97802 ==

== ENCOUNTER 2024-12-27 16:55 | Outpatient (AMB) | payer OTHER, SELFPAY ==
--- NOTE | 2024-12-27 17:02 | MHC.PC.OV ---
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 Accompanied by: Self / Same As Patient Allergies Penicillins [PENICILLINS] Allergy (Intermediate, Verified 12/27/24 17:09) RASH penicillin V Allergy (Unknown, Verified 12/27/24 17:09) rash Medication List - Last Reconciled 12/27/24 by Jose De Jesus Ken MD famotidine 40 mg PO DAILY multivitamin 1 tab PO DAILY naproxen (Naprosyn) 500 mg PO BID PRN Tobacco use date assessed: 12/27/24 Dental Screening Dental Screen Date: 12/27/24 Did you have a dental visit in the last 12 months?: Yes Did you have a dental problem in the last 6 months where you did not have access to dental care?: No Was dental information given to patient?: Patient has dentist HPI high blood pressure HPI Details work related but was recently laid off. [facility] Medical History (Updated 12/27/24 @ 17:23 by Jose De Jesus Ken MD) Hypertension Blood pressure elevated without history of HTN Annual physical exam Pain in left lumbar region of back Surgical History (Updated 07/12/24 @ 09:03 by Jose De Jesus Ken MD) History of cochlear implant Hx of breast biopsy Hx of cholecystectomy History of colonoscopy History of esophagogastroduodenoscopy (EGD) Family History Father Skin cancer Diabetes HTN (hypertension) FH: prostate cancer Mother Diabetes HTN (hypertension) Substance abuse Maternal Grandmother Diabetes Maternal Grandfather Diabetes Sister Substance abuse Skin cancer Paternal Grandfather Aortic aneurysm Social History (Updated 07/12/24 @ 09:15 by Jose De Jesus Ken MD) Housing: House Alcohol intake: current Alcohol intake frequency: does not drink Comment: 2 days weekend 1-2 drinks Patient Tobacco Use Status: Never used Tobacco Tobacco use type: Cigarette e-Cigarette/Vaping Use: Never Used Second Hand Smoke Exposure: No service: No Current occupational status: employed Current occupation: Teacher Cognitive needs: No Hearing needs: Yes (hearing aide) Vision needs: Yes (contact) Questionnaire PHQ-9 Over the last 2 weeks, how often have you been bothered by any of the following problems? 1. Little interest or pleasure in doing things: nearly every day 2. Feeling down, depressed, or hopeless: nearly every day 3. Trouble falling or staying asleep, or sleeping too much: nearly every day 4. Feeling tired or having little energy: nearly every day 5. Poor appetite or overeating: nearly every day 6. Feeling bad about yourself - or that you are a failure or have let yourself or your family down: nearly every day 7. Trouble concentrating on things, such as reading the newspaper or watching television: nearly every day 8. Moving or speaking so slowly that other people could have noticed. Or the opposite - being so fidgety or restless that you have been moving around a lot more than usual: nearly every day 9. Thoughts that you would be better off or of hurting yourself in some way: not at all Total score: 24 76291 - PHQ-9 Billing: Yes Source: Developed by Drs. Anderson Moreno, Ananya Pringle, Alberto Eaton and colleagues, with an educational kelly from [employer]. Thrive Questionnaire Date Thrive assessed: 12/27/24 I am a: Patient What is your living situation today?: I have a steady place to live Within the past 12 months, did the food you bought not last and you didn't have the money to get more?: Never true Within the past 12 months, did you worry whether your food would run out before you got money to buy more?: Never true Do you have trouble paying for medicines?: No Do you have trouble getting transportation to medical appointments?: No Do you have trouble paying your heating and electricity bill?: No Do you have trouble taking care of your child, family member or friend?: No Do you have trouble with day-to-day activities such as bathing, preparing meals, shopping, managing finances, etc.?: No Are you currently unemployed and looking for a job?: No Are you interested in more education?: No Please select the resources that you would like help with: None Currently or been in a relationship where the following occur: No concerns reported THRIVE Score: 0 AUDIT C Alcohol Use Questionnaire (AUDIT-C) 1. How often do you have a drink containing alcohol?: 2-4 times a month 2. How many drinks containing alcohol do you have on a typical day when you are drinking?: 3 or 4 3. How often do you have six or more drinks on one occasion?: Less than monthly Total Score: 4 ЮЛИЯ-7 AMB Questionnaire ЮЛИЯ-7 Date ЮЛИЯ - 7 assessed: 12/27/24 Feeling nervous, anxious, or on edge: 3 = Nearly every day Not being able to stop or control worryin = Nearly every day Worrying too much about different things: 3 = Nearly every day Trouble relaxin = Nearly every day Being so restless that it is hard to sit still: 0 = Not at all Becoming easily annoyed or irritable: 0 = Not at all Feeling afraid as if something awful might happen: 3 = Nearly every day Total ЮЛИЯ-7 score (0-4 normal; 5-9 mild; 10-14 moderate; 15-21 severe): 15 Source: Developed by Drs. Anderson Moreno, Ananya Pringle, Alberto Eaton and colleagues, with an educational kelly from [employer]. ЮЛИЯ-7 Assessment Billing ЮЛИЯ-7 Assessment Tool: ЮЛИЯ-7 Assessment 25526 Physical exam (Primary Care) Vital Signs: Last Vital Signs Temp 97.3 F 12/27/24 17:05 Pulse 101 H 12/27/24 17:05 BP 134/86 12/27/24 17:05 Pulse Ox 97 12/27/24 17:05 Oxygen Delivery Method Room Air 12/27/24 17:05 Tobacco/Smoking Status: Tobacco use Status Tobacco use date assessed 07/12/24 12/27/24 17:02 Patient Tobacco Use Status Never used Tobacco 12/27/24 17:02 Tobacco use type Cigarette 12/27/24 17:02 e-Cigarette/Vaping Use Never Used 12/27/24 17:02 PHQ-9: PHQ-9 Score PHQ-9: Total score 12/27/24 17:08 Thrive Assessment: Date of Thrive Assessment Date Thrive assessed 12/27/24 12/27/24 17:02 Currently or been in a relationship where the following occur: No concerns reported Const General: alert; No acute distress Eyes Conjunctivae: conjunctivae normal Resp Auscultation: clear to auscultation bilaterally Cardio Rate: regular rate Rhythm: regular rhythm GI Inspection: Yes normal to inspection Extrem General: Yes normal to inspection and No edema Coding Level of Care Code Est Pt Level 4 (74093) Diagnoses Obesity E66.9 Gastroesophageal reflux disease without esophagitis K21.9 Esophagitis presence: without esophagitis Blood pressure elevated without history of HTN R03.0 Hypercholesteremia E78.00 Low back pain M54.50 Additional Codes ЮЛИЯ-7 Assessment Billing - ЮЛИЯ-7 Assessment Tool: ЮЛИЯ-7 Assessment 73658 ([id number]) PHQ-9 - 20058 - PHQ-9 Billing: Yes ([id number]) Assessment & Plan Assessment & Plan (1) Obesity: Code(s): E66.9 - Obesity, unspecified Category: Medical Plan: Diet and exercise (2) GERD (gastroesophageal reflux disease): Code(s): K21.9 - Gastro-esophageal reflux disease without esophagitis Category: Medical Qualifiers: Esophagitis presence: without esophagitis Qualified Code(s): K21.9 - Gastro-esophageal reflux disease without esophagitis Plan: Avoid the foods that causes that usually spicy foods, tomato products, juices, coffee, soda and foods that your sensitive to. After eating do not lie down, allow 3-4 hours before in lie down. And keep the head of bed above 30 degrees to avoid the acid from going up. On famotidine (3) Blood pressure elevated without history of HTN: Code(s): R03.0 - Elevated blood-pressure reading, without diagnosis of hypertension Category: Medical Plan: BP here is good 134/80 (4) Hypercholesteremia: Code(s): E78.00 - Pure hypercholesterolemia, unspecified Category: Medical (5) Low back pain: Code(s): M54.50 - Low back pain, unspecified Category: Medical Plan History of Present Illness The patient is a 54-year-old female presenting with hypertension, GERD, and weight management concerns. Her hypertension was previously noted during a visit in October 2024, leading to dietary adjustments. She describes herself as obese and has been referred to weight management and nutrition for assistance in reducing her weight, though she reflects recent stress-associated changes in her work have coincided with some unintentional weight loss. She continues to take famotidine for her GERD, which currently remains under control. The patient?s last blood panel demonstrated an elevated LDL and low Vitamin B12, yet all other measurements were normal. In terms of lifestyle, she recently lost her job, leading to increased stress levels, though she maintains activity through new hobbies like golfing, contributing to her physical health. Despite these personal and medical areas requiring attention, she is proactive about reaching her health goals and has communicated the need for additional support from healthcare providers. 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 - Recently laid off from job, causing stress - Engages in physical activities like golfing - Reports stress-related eating patterns without a significant change in dietary habits Review of Systems - Cardiovascular: Reports hypertension control; denies other symptoms - Gastrointestinal: Reports controlled GERD with famotidine - Neuromuscular: Experiences intermittent back pain, currently not under treatment - Psychological: Reports anxiety due to job loss - Musculoskeletal: Engages in physical activities like golfing; reports back pain occasionally Physical Exam - General- Blood pressure was 134/80 mmHg Results - Labs: Blood work from August showed normal blood counts, normal electrolytes, normal renal function, normal blood sugar, normal liver function, elevated LDL of 130 mg/dL, and low Vitamin B12 Plan Continuing a low-salt diet and further weight reduction is essential in controlling the patient's hypertension, enhanced by physical activity like golfing and stress management techniques. Famotidine will remain the management for GERD, with monitoring of LDL levels and managing Vitamin deficiency with dietary interventions or supplementation if necessary. Encourage mental health support in dealing with work-related stress, with regular monitoring of blood work to evaluate cholesterol and thyroid function over the coming months and adjusting the regimen accordingly. Patient was informed and verbally consented to the use of an ambient scribe for clinic note documentation during this visit. Discussion Notes I discussed the patient's hypertension management extensively, emphasizing the importance of dietary modifications and weight loss. We reviewed the effectiveness of famotidine for GERD and agreed on continued use. Regarding elevated LDL, I explained the potential benefits of dietary changes and set a plan to monitor levels regularly. Vitamin B12 deficiency may require supplementation or dietary improvements, discussions which I initiated during the consultation. Given the patient's exacerbated stress due to job loss, I advised considering mental health counseling. I provided information about scheduling blood work follow-ups and possibly assessing thyroid function. We engaged in exploring alternative physical activities like golfing, which could help in managing stress and maintaining health. Patient Instructions - Continue a low-salt diet to help control blood pressure. - Stay on famotidine for managing GERD symptoms. - Engage in regular physical activities, like golfing, to promote weight loss and reduce stress. - Consider monitoring and managing dietary intake of Vitamin B12, possibly with supplements. - Seek mental health counseling if job-related stress continues to affect health. - Schedule regular follow-ups and blood work to assess cholesterol and potential thyroid function. - Use naproxen responsibly for back pain, ensuring it is taken with food. - Follow up as discussed for ongoing monitoring and adjustments to the management plan. Orders: Orders Comprehensive Met. Panel Today E78.00 - Pure hypercholesterolemia, unspecified Thyroid Stimulating Hormone Today E78.00 - Pure hypercholesterolemia, unspecified Hemoglobin A1c Today E78.00 - Pure hypercholesterolemia, unspecified Lipid Panel Today E78.00 - Pure hypercholesterolemia, unspecified Vitamin D 25-OH Total Today E78.00 - Pure hypercholesterolemia, unspecified Complete Blood Count Auto Diff Today E78.00 - Pure hypercholesterolemia, unspecified Free T4 (Free Thyroxine) Today E78.00 - Pure hypercholesterolemia, unspecified Vitamin B12 and Folate Today E78.00 - Pure hypercholesterolemia, unspecified Medications: New naproxen (Naprosyn) 500 mg PO BID PRN 20 tabs 0RF pain M54.50 - Low back pain, unspecified
[2024-12-27 17:05] VITALS: BP 134/86; PULSE 101; TEMP 36.3; O2SAT 97
== END 2024-12-27 17:27 | disposition home or self-care (01) ==
LOC: HO.HMCH 16:56
PROVIDERS: PCP Internal Medicine; Visit Provider Internal Medicine
DX: R03.0 Elevated blood-pressure reading, without diagnosis of hypertension (principal); E66.9 Obesity, unspecified; K21.9 Gastro-esophageal reflux disease without esophagitis; E78.00 Pure hypercholesterolemia, unspecified; M54.50 Low back pain, unspecified

== ENCOUNTER → 2024-12-27 16:55 | Outpatient (BNVA) | payer OTHER, SELFPAY | PROVIDERS: PCP Internal Medicine; Visit Provider Internal Medicine | DX: K21.9 Gastro-esophageal reflux disease without esophagitis (principal); E66.9 Obesity, unspecified; R03.0 Elevated blood-pressure reading, without diagnosis of hypertension; E78.00 Pure hypercholesterolemia, unspecified; M54.50 Low back pain, unspecified | CPT/HCPCS: 96127 ==

== ENCOUNTER 2025-01-03 08:20 | Outpatient (AMB) | payer OTHER, SELFPAY ==
--- NOTE | 2025-01-03 10:50 | A.OFFVIS_ITS ---
VS Expanded 01/03/25 11:00 Height 5 ft 6 in Weight 218 lb 2 oz BMI 35.2 Body Fat % 41.4 Body Fat Mass 90.2 Fat Free Mass 127.8 Visceral Fat Rating 11 Body Water % 41.7 Body Water Mass 90.2 Basal Metabolic Rate/Score 1,762 Intake Visit Reasons: [employer] [facility] Allergies Penicillins [PENICILLINS] Allergy (Intermediate, Verified 01/03/25 10:51) RASH penicillin V Allergy (Unknown, Verified 01/03/25 10:51) rash Medication List - Last Reconciled 01/03/25 by Tripp Figueroa MD famotidine 40 mg PO DAILY multivitamin 1 tab PO DAILY naproxen (Naprosyn) 500 mg PO BID PRN HPI HPI [employer] [facility]: Details: Start time: 10.43am, End time: 11.23am ?I spent 35 minutes speaking with the patient on the phone plus an additional 5 minutes reviewing and updating records for a total of 40 minutes HPI Comments Details: Previous weight loss efforts: self diet and exercise Wakes up: 6am, Sleeps: 10pm Breakfast: x3/wk (avocado toast) Lunch: 12-2pm (salad, or like dinner) Dinner: 5-6pm (chicken, salad, pasta, vegetables) Snacks: 10am (Pretzels), 4pm (cheese and crackers, chips, hummus), 8pm (popcorn, nuts) Exercise: has home treadmill Beverages: Coffee: none, tea: 3 cups/d (milk), soda: none, juice: none, ETOH: 1- 2/wk (wine 2-3 glasses) [facility] Medical History (Updated 01/03/25 @ 11:17 by Tripp Figueroa MD) Back pain Sleep apnea Hypertension Blood pressure elevated without history of HTN Annual physical exam Pain in left lumbar region of back Surgical History History of cochlear implant Hx of breast biopsy Hx of cholecystectomy History of colonoscopy History of esophagogastroduodenoscopy (EGD) Family History Father Skin cancer Diabetes HTN (hypertension) FH: prostate cancer Mother Diabetes HTN (hypertension) Substance abuse Maternal Grandmother Diabetes Maternal Grandfather Diabetes Sister Substance abuse Skin cancer Paternal Grandfather Aortic aneurysm Social History Housing: House Alcohol intake: current Alcohol intake frequency: does not drink Comment: 2 days weekend 1-2 drinks Patient Tobacco Use Status: Never used Tobacco Tobacco use type: Cigarette e-Cigarette/Vaping Use: Never Used Second Hand Smoke Exposure: No service: No Current occupational status: employed Current occupation: Teacher Cognitive needs: No Hearing needs: Yes (hearing aide) Vision needs: Yes (contact) Telehealth Telehealth Telehealth Platform: Telephone Location of provider rendering services: practice address Location of patient: address on file Patient Identification confirmed using: Name, : Yes Telehealth method: voice only Patient verbally consented to treatment: Yes Patient verbally consented to billing insurance company: Yes Patient informed of any privacy concerns related to visit: Yes Minutes spent on Phone/Video with Pt.: 40 Assessment & Plan Assessment & Plan (1) Obesity: Code(s): E66.9 - Obesity, unspecified Category: Medical Qualifiers: Obesity type: due to excess calories Obesity classification: adult class 2 (BMI 35 - 39.9) Serious obesity comorbidity presence: with serious comorbidity Body mass index: BMI 35.0-35.9 Qualified Code(s): E66.812 - Obesity, class 2; E66.01 - Morbid (severe) obesity due to excess calories; Z68.35 - Body mass index [BMI] 35.0-35.9, adult Plan: 1. We discussed in detail the available therapeutic options: 1) our lifestyle intervention program that has an average weight loss of 10% in 3 months which is about 22lbs. The meal and exercise plan can be provided by me or using our software kim that I will provide to you free of charge ? 2) Weight loss medications. Your insurance requires you to follow our lifestyle program for 3 months before they approve the medications. We also discussed that you can self pay for the first 3 months and the cost is $399 for the first month and $499 for any other month thereafter. 3) We also discussed about the lap sleeve gastrectomy. I emphasized the importance of close follow-up, adherence to instructions and good communication. The surgery does not replace the need to change your lifestlyle which is the cause of the obesity problem. The surgery provides the motivation to try again to change your lifestyle, it reduces the appetite and make the transition to a better lifestyle easier and doubles the amount of weight you would lose compared to doing the lifestyle change without the surgery. You will need to be on a liquid diet with protein shakes for 2 weeks before surgery to maximize weight loss and boost your nutritional status to recover better from surgery and also for the first two weeks after surgery to let the stomach heal before we introduce other foods. After the first 2 weeks we will introduce protein bars and soft foods like scrambled eggs, cottage cheese and yogurt and after the 6th week will introduce meat, fish and cooked vegetables in small amounts. Over time you should be able to eat everything in small amounts. Side effects like nausea, vomiting, heartburn or abdominal pain are not common in the practice unless you are not following in the practice. This operation requires lifetime commitment to following in our practice and communication with me. You will much less weight and experience side effects if you don?t communicate or not following in the practice. Complications are rare and in our practice is about 1/10 of the national average. 2. She had an elevated blood pressure in my office of 161 / 77. I asked her to track her blood pressure daily in the morning the next few days and based on these reading we will decide which medication is most appropriate for her.
[2025-01-03 11:00] VITALS: BMI 35.2
== END 2025-01-03 11:23 | disposition home or self-care (01) ==
LOC: HO.HBS 08:20
PROVIDERS: PCP Internal Medicine; Visit Provider Surgery
DX: E66.812 Obesity, class 2 (principal); E66.01 Morbid (severe) obesity due to excess calories; Z68.35 Body mass index [BMI] 35.0-35.9, adult
CPT/HCPCS: 99203

== ENCOUNTER → 2025-01-03 08:20 | Outpatient (BNVA) | payer OTHER, SELFPAY | PROVIDERS: PCP Internal Medicine; Visit Provider Surgery ==

== ENCOUNTER 2025-03-08 12:51 | Outpatient (AMB) | payer OTHER, SELFPAY ==
[2025-03-08 12:53] VITALS: BP 132/88; PULSE 84; RESP 18; TEMP 36.3; O2SAT 98
--- NOTE | 2025-03-08 12:53 | A.OFFPC_ITS ---
Vital Signs 03/08/25 12:53 Height 5 ft 6 in BMI Reason not done Patient refused/unable BP 132/88 Blood Pressure Location Lt brachial Position Sitting Respiration 18 Pulse 84 Pulse Source Pulse Oximeter Temp 97.3 F Temp Source Temporal Artery Scan Pulse Oximetry (%) 98 Oxygen Delivery Method Room Air Intake Visit Reasons: Smells Smoke Constantly Allergies Penicillins (PENICILLINS) Allergy (Intermediate, Verified 03/08/25 12:55) RASH penicillin V Allergy (Unknown, Verified 03/08/25 12:55) rash Medication List - Last Reconciled 03/08/25 by Jose De Jesus Ken MD famotidine 40 mg PO DAILY fluticasone propionate 50 mcg/actuation (Flonase Allergy Relief) 2 sprays intranasal DAILY multivitamin 1 tab PO DAILY naproxen (Naprosyn) 500 mg PO BID PRN Tobacco use date assessed: 03/08/25 Dental Screening Dental Screen Date: 03/08/25 Did you have a dental visit in the last 12 months?: Yes Did you have a dental problem in the last 6 months where you did not have access to dental care?: No Was dental information given to patient?: Patient has dentist [facility] Medical History Back pain Sleep apnea Hypertension Blood pressure elevated without history of HTN Annual physical exam Pain in left lumbar region of back Surgical History History of cochlear implant Hx of breast biopsy Hx of cholecystectomy History of colonoscopy History of esophagogastroduodenoscopy (EGD) Family History Father Skin cancer Diabetes HTN (hypertension) FH: prostate cancer Mother Diabetes HTN (hypertension) Substance abuse Maternal Grandmother Diabetes Maternal Grandfather Diabetes Sister Substance abuse Skin cancer Paternal Grandfather Aortic aneurysm Social History Housing: House Alcohol intake: current Alcohol intake frequency: does not drink Comment: 2 days weekend 1-2 drinks Patient Tobacco Use Status: Never used Tobacco Tobacco use type: Cigarette e-Cigarette/Vaping Use: Never Used Second Hand Smoke Exposure: No service: No Current occupational status: employed Current occupation: Teacher Cognitive needs: No Hearing needs: Yes (hearing aide) Vision needs: Yes (contact) Questionnaire PHQ-9 Over the last 2 weeks, how often have you been bothered by any of the following problems? 1. Little interest or pleasure in doing things: nearly every day 2. Feeling down, depressed, or hopeless: nearly every day 3. Trouble falling or staying asleep, or sleeping too much: nearly every day 4. Feeling tired or having little energy: nearly every day 5. Poor appetite or overeating: nearly every day 6. Feeling bad about yourself - or that you are a failure or have let yourself or your family down: nearly every day 7. Trouble concentrating on things, such as reading the newspaper or watching television: nearly every day 8. Moving or speaking so slowly that other people could have noticed. Or the opposite - being so fidgety or restless that you have been moving around a lot more than usual: nearly every day 9. Thoughts that you would be better off or of hurting yourself in some way: not at all Total score: 24 Source: Developed by Drs. Anderson Moreno, Ananya Pringle, Alberto Eaton and colleagues, with an educational kelly from [employer]. Thrive Questionnaire Date Thrive assessed: 12/27/24 I am a: Patient What is your living situation today?: I have a steady place to live Within the past 12 months, did the food you bought not last and you didn't have the money to get more?: Never true Within the past 12 months, did you worry whether your food would run out before you got money to buy more?: Never true Do you have trouble paying for medicines?: No Do you have trouble getting transportation to medical appointments?: No Do you have trouble paying your heating and electricity bill?: No Do you have trouble taking care of your child, family member or friend?: No Do you have trouble with day-to-day activities such as bathing, preparing meals, shopping, managing finances, etc.?: No Are you currently unemployed and looking for a job?: No Are you interested in more education?: No Please select the resources that you would like help with: None Currently or been in a relationship where the following occur: No concerns reported THRIVE Score: 0 AUDIT C Alcohol Use Questionnaire (AUDIT-C) 1. How often do you have a drink containing alcohol?: 2-4 times a month 2. How many drinks containing alcohol do you have on a typical day when you are drinking?: 3 or 4 3. How often do you have six or more drinks on one occasion?: Less than monthly Total Score: 4 ЮЛИЯ-7 AMB Questionnaire ЮЛИЯ-7 Date ЮЛИЯ - 7 assessed: 12/27/24 Feeling nervous, anxious, or on edge: 3 = Nearly every day Not being able to stop or control worryin = Nearly every day Worrying too much about different things: 3 = Nearly every day Trouble relaxin = Nearly every day Being so restless that it is hard to sit still: 0 = Not at all Becoming easily annoyed or irritable: 0 = Not at all Feeling afraid as if something awful might happen: 3 = Nearly every day Total ЮЛИЯ-7 score (0-4 normal; 5-9 mild; 10-14 moderate; 15-21 severe): 15 Source: Developed by Drs. Anderson Moreno, Ananya Pringle, Alberto Eaton and colleagues, with an educational kelly from [employer]. Physical exam (Primary Care) Vital Signs: Last Vital Signs Temp 97.3 F 03/08/25 12:53 Pulse 84 03/08/25 12:53 Resp 18 03/08/25 12:53 BP 132/88 03/08/25 12:53 Pulse Ox 98 03/08/25 12:53 Oxygen Delivery Method Room Air 03/08/25 12:53 Tobacco/Smoking Status: Tobacco use Status Tobacco use date assessed 03/08/25 03/08/25 12:56 Patient Tobacco Use Status Never used Tobacco 03/08/25 12:56 Tobacco use type Cigarette 03/08/25 12:56 e-Cigarette/Vaping Use Never Used 03/08/25 12:56 PHQ-9: PHQ-9 Score PHQ-9: Total score 24 03/08/25 13:02 Thrive Assessment: Date of Thrive Assessment Date Thrive assessed 12/27/24 03/08/25 12:56 Currently or been in a relationship where the following occur: No concerns reported Const General: alert; No acute distress Eyes Conjunctivae: conjunctivae normal Resp Auscultation: clear to auscultation bilaterally Cardio Rate: regular rate Rhythm: regular rhythm GI Inspection: Yes normal to inspection Extrem General: Yes normal to inspection and No edema Coding Level of Care Code Est Pt Level 4 (78612) Diagnoses Class 2 severe obesity due to excess calories with serious comorbidity and body mass index (BMI) of 35.0 to 35.9 in adult E66.812; E66.01; Z68.35 Body mass index: BMI 35.0-35.9 Obesity classification: adult class 2 (BMI 35 - 39.9) Obesity type: due to excess calories Serious obesity comorbidity presence: with serious comorbidity History of cochlear implant Z96.21 Gastroesophageal reflux disease without esophagitis K21.9 Esophagitis presence: without esophagitis Parosmia R43.1 Assessment & Plan Assessment & Plan (1) Obesity: Code(s): E66.9 - Obesity, unspecified Category: Medical Qualifiers: Body mass index: BMI 35.0-35.9 Obesity classification: adult class 2 (B ME 35 - 39.9) Obesity type: due to excess calories Serious obesity comorbidity presence: with serious comorbidity Qualified Code(s): E66.812 - Obesity, class 2; E66.01 - Morbid (severe) obesity due to excess calories; Z68.35 - Body mass index [BMI] 35.0-35.9, adult Plan: Diet and exercise patient has met with bariatric. (2) History of cochlear implant: Comment: 2012 Code(s): Z96.21 - Cochlear implant status Category: Surgical Plan: . (3) GERD (gastroesophageal reflux disease): Code(s): K21.9 - Gastro-esophageal reflux disease without esophagitis Category: Medical Qualifiers: Esophagitis presence: without esophagitis Qualified Code(s): K21.9 - Gastro-esophageal reflux disease without esophagitis Plan: Avoid the foods that causes that usually spicy foods, tomato products, juices, c offee, soda and foods that your sensitive to. After eating do not lie down, allow 3-4 hours before in lie down. And keep the head of bed above 30 degrees to avoid the acid from going up. (4) Parosmia: Code(s): R43.1 - Parosmia Category: Medical Plan: Discussed about taking allergy medication regularly. If this persists discussed about other options of taking in other medications/referral to ear nose and throat Plan History of Present Illness The patient is a 54-year-old female presenting for a follow-up visit. She has a history of Gastroesophageal Reflux Disease (GERD) and is currently taking famotidine for management. Her GERD symptoms have been stable with medication. The patient also has sensorineural hearing loss and lumbar spondylosis, which have been ongoing conditions. She has been diagnosed with hypercholesterolemia, with a recent LDL cholesterol level of 130 mg/dL, which is borderline high. She is aware of her cholesterol levels and is considering lifestyle modifications to manage it. The patient has a low vitamin B12 level and has started taking vitamin B supplements to address this deficiency. She reports hematuria, which was noted in a recent urine test, although there is no infection present. Her preventative care is up to date, with her last colon cancer screening in 2017 and a mammogram in April 2024. Health Maintenance - Colon cancer screening: Up to date as of 2017 - Mammogram: Up to date as of April 2024 Social History - Exercise: Walks daily for 45 minutes and engages in gardening activities Review of Systems - Cardiovascular: Denies chest pain or palpitations - Gastrointestinal: Reports stable GERD symptoms with medication - Neurological: Reports persistent sensorineural hearing loss - Musculoskeletal: Reports lumbar spondylosis - Genitourinary: Reports hematuria, denies urinary tract infection symptoms Physical Exam - Cardiovascular: Blood pressure improved from previous reading of 160 mmHg in October Results - Labs: Normal blood count, electrolytes, renal function, and liver function tests - Labs: Borderline high LDL cholesterol at 130 mg/dL - Labs: Low vitamin B12 level - Labs: Normal thyroid function - Urinalysis: Hematuria present, no infection detected Plan The patient will continue with famotidine for management of GERD symptoms, which have been stable. For hypercholesterolemia, lifestyle modifications are recommended, and the patient is considering these changes to manage her cholesterol levels. Vitamin supplementation has been initiated to address the deficiency, and the patient is advised to continue this regimen. Regarding hematuria, further evaluation may be necessary if symptoms persist or worsen. Preventative care measures are up to date, with the next mammogram scheduled for April 2024. Patient was informed and verbally consented to the use of an ambient scribe for clinic note documentation during this visit. Discussion Notes I discussed with the patient the importance of continuing her current medication regimen for GERD and the potential benefits of lifestyle modifications for managing hypercholesterolemia. We also reviewed the need for ongoing vitamin B12 supplementation and the possibility of further evaluation for hematuria if symptoms persist. Preventative care measures were confirmed to be up to date, and the patient was reminded of her upcoming mammogram in April 2024. Patient Instructions - Continue taking famotidine as prescribed for GERD management. - Consider lifestyle changes to help manage cholesterol levels. - Continue vitamin B12 supplementation as advised. - Monitor for any changes in urinary symptoms and report if hematuria persists. - Attend the scheduled mammogram in April 2024. Medications: New fluticasone propionate 50 mcg/actuation (Flonase Allergy Relief) administer into each nostril 2 sprays intranasal DAILY 16 grams 0RF R43.1 - Parosmia tirzepatide (weight loss) (Zepbound) for 4 weeks 2.5 mg (0.5 mL) subcut QWEEK 2 mL 0RF E66.01 - Morbid (severe) obesity due to excess calories, E66.812 - Obesity, class 2, Z68.35 - Body mass index [BMI] 35.0-35.9, adult
--- OUTSIDE RECORDS SUMMARY | 2025-03-08 13:52 | XMS_ITS | Clinical Summary ---
Author Organization [facility] Address [facility] Finding Something 3 [facility] [address] [place] [id number] Phone Care Team Providers Care Muffler Mechanic Name Role Phone Jose De Jesus Ken MD Primary Care Provider [phone] Allergies Active Allergy Reactions Criticality Noted Date Comments Penicillin Rash Low 06/24/2024 Medications famotidine (PEPCID) 40 MG tablet Take 1 tablet by mouth every morning. 12/05/2024 Active Active Problems No known active problems Encounters Date Type Department Care Team Description 12/12/2024 9:10 AM EDT Office Visit [facility] at [address] [address] Teresa Chavira, NOMAN Acute upper respiratory infection (Primary Dx); Acute cough from Last 3 Months Social History Tobacco Use Types Packs/Day Years [...] on file Sexual Orientation Not on file Last Filed Vital Signs Vital Sign Reading Time Taken Comments Blood Pressure 128/86 12/12/2024 9:08 AM EDT Pulse 79 12/12/2024 9:08 AM EDT Temperature 36.4 C (97.5 F) 12/12/2024 9:08 AM EDT Respiratory Rate 18 12/12/2024 9:08 AM EDT Oxygen Saturation 99% 12/12/2024 9:08 AM EDT Inhaled Oxygen Concentration - - Weight - - Height - - Body Mass Index - - Plan of Treatment Health Maintenance Due Date Last Done Comments LIPID PANEL 1968 DEPRESSION SCREENING 1980 SMOKING Hx and SMOKELESS TOBACCO SCREENING 1981 HEPATITIS C SCREENING 1986 HIV ONE-TIME SCREENING (18-65 YEARS) 1986 PAP SMEAR 1989 MAMMOGRAM 2008 COLOGUARD 2013 COLONOSCOPY 2013 COLORECTAL CANCER SCREENING 2013 FIT TEST 2013 FOBT 2013 SIGMOIDOSCOPY 2013 VIRTUAL COLONOSCOPY 2013 PNEUMOCOCCAL VACCINES (50+ years) (1 of 1 - PCV) 2018 ZOSTER VACCINES (1 of 2) 2018 COVID-19 VACCINE (5 - season) 2024 07/17/2021, 12/07/2020, 11/22/2020, Additional history exists Adult Td,Tdap Booster 07/03/2033 07/03/2023 HEPATITIS A VACCINES Aged Out No long er eligible based on patient's age to complete this topic HIB VACCINES Aged Out No longer eligi ble based on patient's age to complete this topic MENINGOCOCCAL VACCINES (ACWY) Aged Out No longer eligible based on patient's age to complete this topic MENINGOCOCCAL VACCINES (B) Aged Out N o longer eligible based on patient's age to complete this topic Medical Devices Not on file Procedures Procedure Name Priority Date/Time Associated Diagnosis Comments POCT COVID-19 RT-PCR/INFLUENZA A & B/RSV CEPHEID Routine 12/12/2024 9:11 AM EDT Acute cough from Last 3 Months Results * POCT COVID-19 RT-PCR/Influenza A & B/RSV (Cepheid) (12/12/2024 9:11 AM EDT) RSV PCR Negative Negative [facility] SARS-CoV-2 (COVID-19) Negative Negative [facility] POC Influenza A PCR Negative Negative [facility] Influenza B PCR Negative Negative [facility] 12/12/2024 9:11 AM EDT 12/12/2024 9:51 AM EDT Teresa Chavira [facility] POINT OF CARE TEST [place] Final Result [facility] [address] [address], [facility] [phone] from Last 3 Mon[address] [place] [address] [place] [address] [place] [place] [address] [place] [address] HMO [facility] HMO O O HMO Care Teams Muffler Mechanic Relationship Specialty Start Date End Date Jose De Jesus Ken MD [address] [place] [address] PCP - General Internal Medicine 07/23/19 Additional Source Comments The information contained in this document represents components of the legal health record. It is not the complete legal health record.[facility]
== END 2025-03-08 13:30 | disposition home or self-care (01) ==
LOC: HO.HMCH 12:52
PROVIDERS: PCP Internal Medicine; Visit Provider Internal Medicine
DX: E66.812 Obesity, class 2 (principal); E66.01 Morbid (severe) obesity due to excess calories; Z68.35 Body mass index [BMI] 35.0-35.9, adult; Z96.21 Cochlear implant status; K21.9 Gastro-esophageal reflux disease without esophagitis; R43.1 Parosmia

== ENCOUNTER 2025-05-11 15:48 | Outpatient (AMB) | payer OTHER, SELFPAY ==
--- OUTSIDE RECORDS SUMMARY | 2024-06-24 17:15 | XMS_ITS | Encounter Summary ---
Author Organization [facility] Address [facility] ([place] [place] [address] [place] [phone] Phone Care Team Providers Care Director Of Critical Care Name Role Phone Jose De Jesus Ken MD Primary Care Provider [phone] Encounter Details Date Type Department Care Team (Late st Contact Info) Description 06/24/2024 4:15 PM EST Hospital Encounter [facility] [address] [place] [address] Anh Barnes, BULB PLANTER [address] [place] [address] [email or web address] Social History Tobacco Use Types Packs/Day Years [...] clinician's provided indication for this examination in [facility]: * Respiratory illness, no prior imaging COMPARISON: [...] clips. IMPRESSION: No acute abnormality. Anh Barnes [facility] IMG XR CHEST Final Result documented in this encounter Visit Diagnoses Not on filedocumented in this encounter Care Teams Director Of Critical Care Relationship Specialty Start Date End Date Po, Jose De Jesus Jean MD [address] [place] [address] PCP - General Internal Medicine 07/23/19 documented as of this encounter Additional Source Comments The information contained in this document represents components of the legal health record. It is not the complete legal health record.[facility]
--- NOTE | 2025-05-11 15:52 | MHC.OFFVIS ---
Vital Signs 05/11/25 15:57 Height 5 ft 6 in BP 146/79 H Blood Pressure Location Rt brachial Position Sitting Pulse 94 Intake Visit Reasons: gerd Intake Note: Chana returns in follow up GERD. CC: Patient reports doing well and denies having any new GI concerns toda. Director Of Pediatric Rehabilitation Required: No Allergies Penicillins (PENICILLINS) Allergy (Intermediate, Verified 05/11/25 16:00) RASH penicillin V Allergy (Unknown, Verified 05/11/25 16:00) rash HPI HPI gerd: Details: Assessment & Plan (1) LLQ pain: Code(s): R10.32 - Left lower quadrant pain Category: Medical (2) GERD (gastroesophageal reflux disease): Code(s): K21.9 - Gastro-esophageal reflux disease without esophagitis Category: Medical Qualifiers: Esophagitis presence: without esophagitis Qualified Code(s): K21.9 - Gastro-esophageal reflux disease without esophagitis (3) Constipation: Code(s): K59.00 - Constipation, unspecified Category: Medical Plan She has not had the pain since her CT. She has taken the bentyl a couple of times, but does not remember if it helps. The CT is benign except for a very small ovarian cyst, so we decide to wait and watch. She will experiment with the bentyl. She continues on famotidine. ROV 3 mos or sooner if pain becomes severe. Medications: Refilled dicyclomine 20 mg PO QID 30 days PRN 120 tabs 1RF abdominal pain famotidine 40 mg PO DAILY 90 tabs 2RF K21.9 - Gastro-esophageal reflux disease without esophagitis, R13.12 - Dysphagia, oropharyngeal phase TODAY'S VISIT [facility] Medical History (Updated 05/11/25 @ 16:01 by RED Klein) Diverticular disease Oropharyngeal dysphagia Obesity Pre-employment health screening examination Annual physical exam Hypersomnia Nocturnal hypoxemia COVID-19 virus infection Back pain Sleep apnea Hypertension Blood pressure elevated without history of HTN Pain in left lumbar region of back Surgical History (Updated 05/11/25 @ 16:11 by RED Klein) History of cochlear implant Hx of breast biopsy Hx of cholecystectomy History of colonoscopy History of esophagogastroduodenoscopy (EGD) Family History Father Skin cancer Diabetes HTN (hypertension) FH: prostate cancer Mother Diabetes HTN (hypertension) Substance abuse Maternal Grandmother Diabetes Maternal Grandfather Diabetes Sister Substance abuse Skin cancer Paternal Grandfather Aortic aneurysm Social History Housing: House Alcohol intake: current Alcohol intake frequency: does not drink Comment: 2 days weekend 1-2 drinks Patient Tobacco Use Status: Never used Tobacco Tobacco use type: Cigarette e-Cigarette/Vaping Use: Never Used Second Hand Smoke Exposure: No service: No Current occupational status: employed Current occupation: Teacher Cognitive needs: No Hearing needs: Yes (hearing aide) Vision needs: Yes (contact) Review of Systems Const Denies fatigue, Denies fever(s), Denies night sweats, Denies poor appetite and Denies weight loss ENT Reports Normal hearing present, Denies dental pain, Denies dysphagia, Denies hearing loss, Denies mouth pain, Denies odynophagia, Denies throat swelling, Denies tongue swelling and Reports other (Dentition adequate) Card Reports no additional complaints Resp Reports no additional complaints GI Details: Denies abdominal pain, Denies melena, Denies bloating, Denies hematochezia, Denies constipation, Denies GI cramping, Denies dysphagia, Denies excessive flatus, Denies early satiety, Reports heartburn, Denies diarrhea, Denies nausea, Denies odynophagia, Denies vomiting and Denies hematemesis Skin/Breast Denies pruritus, Denies lesions, Denies rash and Denies jaundice Neuro Reports Normal hearing present and Denies Abnormal speech present Endo Denies fatigue Aller/Immun Denies throat swelling and Denies tongue swelling Physical Exam Vital Signs: Last Vital Signs Pulse 94 05/11/25 15:57 BP 146/79 H 05/11/25 15:57 Const General: cooperative, no acute distress, well developed and well groomed Nutritional Appearance: well nourished and obese Orientation/consciousness: oriented to person, oriented to place and oriented to time Limitations: No language barrier HEENT Head: Yes normocephalic and Yes atraumatic Eyes General: appearance normal, both eyes and all related structures Pupils: Equal, round and reactive pupils present Neck Neck: Yes normal visual inspection and Yes no lymphadenopathy Thyroid: Thyroid normal Resp Effort & Inspection: normal respiratory effort and able to speak in complete sentences Auscultation: clear to auscultation bilaterally Cardio Rate: regular rate Rhythm: regular rhythm Heart sounds: Normal, physiologic split S2 sound present Peripheral pulses: radial pulses present and posterior tibial pulses present GI Inspection: No distended, Yes Abdominal panniculus present and Yes obesity Palpation (GI): Soft to palpation, nontender, no guarding, not rigid and No hepatosplenomegaly present Percussion: Yes normal to percussion Auscultation: normal bowel sounds Rectal Exam - Female: deferred Skin General skin exam: no rashes or lesions noted, turgor normal, skin not dry, no jaundice, No spider nevi and no striae Rashes: no rashes Nails: normal Neuro General: oriented to person, oriented to place and oriented to time Cranial nerves: Yes Equal, round and reactive pupils present and Yes Normal hearing present Speech: No Abnormal speech present Extrem General: Yes normal to inspection, No clubbing, No cyanosis and No edema Psych Appearance: grossly normal and well kempt Mental Status: mental status grossly normal Speech and movement: Normal speech and movement present (Slight lisp) Affect: normal affect Attitude: cooperative Thought process: Normal thought process present and not confabulating Thought content: Normal thought content present Insight: Good insight present (Psych) Judgement: Good judgement present (Psych) Assessment & Plan Assessment & Plan (1) GERD (gastroesophageal reflux disease): Code(s): K21.9 - Gastro-esophageal reflux disease without esophagitis Category: Medical Qualifiers: Esophagitis presence: without esophagitis Qualified Code(s): K21.9 - Gastro-esophageal reflux disease without esophagitis (2) LLQ pain: Code(s): R10.32 - Left lower quadrant pain Category: Medical Plan SHE CONTINUES ON DICYCLOMINE 20 MG 4 TIMES A DAY NEEDED AND FAMOTIDINE 40 MG ONCE A DAY. Actually, she has not been using the dicyclomine because she has not needed it. She is extremely happy with her GERD management via her famotidine. We discuss colonoscopy screening and since she had a negative colonoscopy in 2018 and no family history she would not be due again until 2027 in the absence of significant symptoms. She tells me that she might be having a hysterectomy because she has been having very heavy menstrual bleeding that has only been partially helped by hormone therapy. Return office visit in 6 months Medications: Refilled famotidine 40 mg PO DAILY 90 tabs 4RF K21.9 - Gastro-esophageal reflux disease without esophagitis, R13.12 - Dysphagia, oropharyngeal phase Coding Level of Care Code Est Pt Level 3 (82605) Diagnoses Gastroesophageal reflux disease without esophagitis K21.9 Esophagitis presence: without esophagitis LLQ pain R10.32
[2025-05-11 15:57] VITALS: BP 146/79; PULSE 94
--- OUTSIDE RECORDS SUMMARY | 2025-05-11 17:57 | XMS_ITS | Clinical Summary ---
Author Organization [facility] Address [address] [facility] [address] [place] [phone] Phone Care Team Providers Care Manager Laundry Name Role Phone Jose De Jesus Ken MD Primary Care Provider [phone] Allergies Active Allergy Reactions Criticality Noted Date Comments Penicillin Rash Low 06/24/2024 Medications famotidine (PEPCID) 40 MG tablet Take 1 tablet by mouth every morning. 12/05/2024 Active Active Problems No known active problems Social History Tobacco Use Types Packs/Day Years [...] 2018 ZOSTER VACCINES (1 of 2) 2018 INFLUENZA VACCINE (#1) 2025 06/12/2017, 2013 COVID-19 VACCINE ( season) 2025 07/17/2021, 12/07/2020, 11/22/2020, Additional history exists Adult [...] this topic Medical Devices Not on file Insurance [facility] HMO [facility] [place] [place] [address] HMO O HMO [facility] HMO Care Teams Manager Laundry Relationship Specialty Start Date End Date Jose De Jesus Ken MD [address] [place] [address] [address] [place] [phone] PCP - General Internal Medicine 07/23/19 Additional Source Comments The information contained in this document represents components of the legal health record. It is not the complete legal health record.[facility]
== END 2025-05-11 16:14 | disposition home or self-care (01) ==
LOC: HO.HGI 15:48
PROVIDERS: PCP Internal Medicine; Visit Provider Nurse Practitioner
DX: K21.9 Gastro-esophageal reflux disease without esophagitis (principal); R10.32 Left lower quadrant pain
CPT/HCPCS: 99213

== ENCOUNTER 2025-07-18 16:04 | Outpatient (AMB) | payer OTHER, SELFPAY ==
--- OUTSIDE RECORDS SUMMARY | 2024-06-24 16:15 | XMS_ITS | Encounter Summary ---
Author Organization [facility] Address [facility] [facility] [address] [place] [phone] Phone Care Team Providers Care Rotary Filter Operator Name Role Phone Jose De Jesus Ken MD Primary Care Provider [phone] Encounter Details Date Type Department Care Team (Late st Contact Info) Description 06/24/2024 4:15 PM EST Hospital Encounter [facility] [address] [place] [phone] Anh Barnes, NEONATAL NURSE [address] [place] [address] [email or web address] Social History Tobacco Use Types Packs/Day Years Used Date Smoking Tobacco: Never Assessed Education Answer Date Recorded Are you interested in more education? Not on eli e 12/13/2022 Are you concerned about learning? Not on file 12/13/2022 No 12/13/2022 No 12/13/2022 Digital Access Answer Date Recorded No 01/14/2023 No 01/14/2023 Reliable internet access at home? Not on file 01/14/2023 Device with a working camera? Not on file Comments Unknown Sex and Gender Information Value Date Recorded Sex Assigned at Not on file Legal Sex Female 2:57 PM EDT Gender Identity Not on file Sexual Orientation Not on file documented as of this encounter Plan of Treatment Not on file documented as of this encounter Procedures Procedure Name Priority Date/Time Associated Diagnosis Comments XR CHEST PA AND LATERAL 2 VIEWS Urgent/patient waiting 06/24/2024 4:26 PM EST Acute cough documented in this encounter Results * XR CHEST PA AND LATERAL 2 VIEWS (06/24/2024 4:26 PM EST) Anatomical Region Laterality Modality Chest Computed Radiogr aphy 06/24/2024 4:56 PM EST Impressions 06/24/2024 4:57 PM EST No acute abnormality. Narrative 06/24/2024 4:57 PM EST XR CHEST PA AND LATERAL 2 VIEWS Referring clinician's provided indication for this examination in [facility]: * Respiratory illness, no prior imaging COMPARISON: None FINDINGS: Devices/Tubes/Lines: None. Lungs: No focal consolidation or pulmonary edema. Pleura: No pleural effusion or pneumothorax. Heart/Mediastinum: Normal heart and mediastinum. Bones/Soft Tissues: No significant abnormality. Cholecystectomy clips. Procedure Note Howard Wells MD, PhD - 06/24/2024 XR CHEST PA AND LATERAL 2 VIEWS Referring clinician's provided indication for this examination in Epic: *Respiratory illness, no prior imaging COMPARISON: None FINDINGS: Devices/Tubes/Lines: None. Lungs: No focal consolidation or pulmonary edema. Pleura: No pleural effusion or pneumothorax. Heart/Mediastinum: Normal heart and mediastinum. Bones/Soft Tissues: No significant abnormality. Cholecystectomy clips. IMPRESSION: No acute abnormality. Anh Barnes [facility] IMG XR CHEST Final Result documented in this encounter Visit Diagnoses Not on filedocumented in this encounter Care Teams Rotary Filter Operator Relationship Specialty Start Date End Date Po, Jose De Jesus Jean MD [address] [place] [address] PCP - General Internal Medicine 07/23/19 documented as of this encounter Additional Source Comments The information contained in this document represents components of the legal health record. It is not the complete legal health record.[facility]
[2025-07-18 16:07] VITALS: BP 138/82; PULSE 71; O2SAT 98
--- NOTE | 2025-07-18 16:07 | A.OFFPC_ITS ---
Vital Signs 07/18/25 16:07 Height 5 ft 6 in BMI Reason not done Patient refused/unable BP 138/82 Blood Pressure Location Lt brachial Position Sitting Pulse 71 Pulse Source Pulse Oximeter Pulse Oximetry (%) 98 Oxygen Delivery Method Room Air Intake Visit Reasons: Annual Exam Allergies Penicillins (PENICILLINS) Allergy (Intermediate, Verified 07/18/25 16:07) RASH penicillin V Allergy (Unknown, Verified 07/18/25 16:07) rash Medication List - Last Reconciled 07/18/25 by Jose De Jesus Ken MD famotidine 40 mg PO DAILY fluticasone propionate 50 mcg/actuation (Flonase Allergy Relief) 2 sprays intranasal DAILY multivitamin 1 tab PO DAILY naproxen (Naprosyn) 500 mg PO BID PRN norethindrone (contraceptive) (Rhonda-BE) mg PO Tobacco use date assessed: 03/08/25 Dental Screening Dental Screen Date: 03/08/25 HPI Annual Exam HPI Details LUIS 08/02/2025 Dr. Jen Corcoran- vaginal bleeding and endometriosis. In August 2023 cyst HPI Comments History of Present Illness Details History of Present Illness The patient is a 55-year-old individual presenting for an annual physical examination. The patient's past medical history is significant for obesity, gastroesophageal reflux disease (GERD), bilateral sensorineural hearing loss with cochlear implants, lumbar spondylosis, hypercholesterolemia, and a low vitamin B12 level noted on prior labs. The patient has a known allergy to penicillin. The patient is scheduled for a hysterectomy on August [address] Jen Corcoran due to vaginal bleeding and endometriosis. The patient has a history of uterine cysts, for which a removal procedure was performed in August. There is consideration for oophorectomy, about which the patient is undecided, though the patient reports being postmenopausal. The patient is currently taking norethindrone. For GERD, the patient was seen by gastroenterology in April and takes famotidine 40 mg once a day, which has controlled the patient's heartburn. Dicyclomine is prescribed on an as-needed basis, but the patient does not use it. The patient was seen by allergy and immunology and was diagnosed with al lergies, including to dogs, and was prescribed azelastine nasal spray. The patient currently takes multivitamins and occasionally uses naproxen. Regarding health maintenance, the patient's last colonoscopy was in 2017, and the mammogram is due and has been scheduled for July. The last blood work in August 2024 revealed a normal complete blood count, electrolytes, renal function, blood sugar, and liver function, with an LDL of 130 and low vitamin B12. Family history is notable for a sister with skin cancer, a father with prostate cancer, and a grandfather with an aneurysm. The patient reports drinking alcohol on the weekends and denies any history of smoking. Health Maintenance - A mammogram is due and has been schedu led for July. - The last colonoscopy was in 2017; kristy roenterology recommended a follow-up in two to three years. - Last blood work in August 2024 showed an LDL of 130 and low vitamin B12. - Fasting labs, including cholesterol an d blood sugar, have been ordered. - Cholesterol goals are an LDL of less t kumar 130 mg/dL and triglycerides of less than 150 mg/dL. - Immunizations: Tetanus vaccine is up t o date. - Influenza vaccine was discussed, with a recommendation to receive it after the scheduled surgery in July, as the flu season extends to November. - Shingles vaccine was recommended; the patient was advised it is available at the pharmacy. - Pneumococcus vaccine is recommended du e to the patient's cochlear implants and should be administered after surgery. Social History - Employment: The patient recently galloway ed jobs and reports less work-related stress. - Substance Use: The patient consumes al cohol on weekends and denies any history of smoking. - Sleep: Reports sleeping well. Results - Laboratory Studies (from August 2024) : - Complete blood count: Normal. - Electrolytes and renal function: Annia l. - Blood sugar: Normal. - Liver function tests: Normal. - Lipid panel: LDL 130 mg/dL. - Vitamin B12: Low. - Diagnostic Procedures: - Colonoscopy (2018): Findings not detai led, but velvet cutter recommends repeat in 2-3 years. - Allergy testing: Positive for multiple allergens, including dog. [facility] Medical History (Updated 07/18/25 @ 16:24 by Jose De Jesus Ken MD) Annual physical exam Sensorineural hearing loss (SNHL) of both ears Diverticular disease Oropharyngeal dysphagia Obesity Pre-employment health screening examination Hypersomnia Nocturnal hypoxemia COVID-19 virus infection Back pain Sleep apnea Hypertension Blood pressure elevated without history of HTN Pain in left lumbar region of back Surgical History (Updated 05/11/25 @ 16:11 by RED Klein) History of cochlear implant Hx of breast biopsy Hx of cholecystectomy History of colonoscopy History of esophagogastroduodenoscopy (EGD) Family History Father Skin cancer Diabetes HTN (hypertension) FH: prostate cancer Mother Diabetes HTN (hypertension) Substance abuse Maternal Grandmother Diabetes Maternal Grandfather Diabetes Sister Substance abuse Skin cancer Paternal Grandfather Aortic aneurysm Social History Housing: House Alcohol intake: current Alcohol intake frequency: does not drink Comment: 2 days weekend 1-2 drinks Patient Tobacco Use Status: Never used Tobacco Tobacco use type: Cigarette e-Cigarette/Vaping Use: Never Used Second Hand Smoke Exposure: No service: No Current occupational status: employed Current occupation: Teacher Cognitive needs: No Hearing needs: Yes (hearing aide) Vision needs: Yes (contact) Questionnaire PHQ-9 Over the last 2 weeks, how often have you been bothered by any of the following problems? 1. Little interest or pleasure in doing things: nearly every day 2. Feeling down, depressed, or hopeless: nearly every day 3. Trouble falling or staying asleep, or sleeping too much: nearly every day 4. Feeling tired or having little energy: nearly every day 5. Poor appetite or overeating: nearly every day 6. Feeling bad about yourself - or that you are a failure or have let yourself or your family down: nearly every day 7. Trouble concentrating on things, such as reading the newspaper or watching television: nearly every day 8. Moving or speaking so slowly that other people could have noticed. Or the opposite - being so fidgety or restless that you have been moving around a lot more than usual: nearly every day 9. Thoughts that you would be better off or of hurting yourself in some way: not at all Total score: 24 Depression Screening Interpretation: Positive Depression Screening Done: Yes Source: Developed by Drs. Anderson Moreno, Ananya Pringle, Alberto Eaton and colleagues, with an educational kelly from [employer]. Thrive Questionnaire Date Thrive assessed: 12/27/24 I am a: Patient What is your living situation today?: I have a steady place to live Within the past 12 months, did the food you bought not last and you didn't have the money to get more?: Never true Within the past 12 months, did you worry whether your food would run out before you got money to buy more?: Never true Do you have trouble paying for medicines?: No Do you have trouble getting transportation to medical appointments?: No Do you have trouble paying your heating and electricity bill?: No Do you have trouble taking care of your child, family member or friend?: No Do you have trouble with day-to-day activities such as bathing, preparing meals, shopping, managing finances, etc.?: No Are you currently unemployed and looking for a job?: No Are you interested in more education?: No Please select the resources that you would like help with: None Currently or been in a relationship where the following occur: No concerns reported THRIVE Score: 0 AUDIT C Alcohol Use Questionnaire (AUDIT-C) 1. How often do you have a drink containing alcohol?: 2-4 times a month 2. How many drinks containing alcohol do you have on a typical day when you are drinking?: 3 or 4 3. How often do you have six or more drinks on one occasion?: Less than monthly Total Score: 4 ЮЛИЯ-7 AMB Questionnaire ЮЛИЯ-7 Date ЮЛИЯ - 7 assessed: 12/27/24 Source: Developed by Drs. Anderson Moreno, Ananya Pringle, Alberto Eaton and colleagues, with an educational kelly from [employer]. Review of Systems Narrative Review of Systems - Constitutional: Denies syncope, dizziness, fever. - HEENT: Reports headaches for the past 2-3 weeks, described as a band-like sensation coming down from the back of the head, without visual changes. - Reports bilateral sensorineural hearing loss managed with cochlear implants. - Vision is fine; wears contact lenses. - Denies problems with swallowing. - Cardiovascular: Denies chest pain or waking up short of breath. - Respiratory: Reports a sensation of something right here in the chest with some associated pain. - Gastrointestinal: Reports heartburn is under control. - Bowel movements are good. - Denies nausea or vomiting. - Genitourinary: History of vaginal bleeding. - Denies problems with urination. - Reports waking up to urinate once at night or not at all. Const Denies poor appetite and Denies weakness Eyes Denies no additional complaints ENT Reports Normal hearing present, Denies dizziness, Denies nasal congestion, Denies tinnitus and Denies sore throat Card Denies chest pain, Denies syncope, Denies rapid heart rate and Denies dyspnea Resp Denies cough and Denies dyspnea GI Denies change in stool character, Reports constipation, Denies diarrhea, Denies nausea and Denies vomiting Denies urinary frequency, Denies difficulty voiding and Denies dysuria Neuro Reports Normal hearing present, Denies confusion, Denies dizziness, Denies syncope and Denies weakness Psych Denies confusion Physical exam (Primary Care) Vital Signs: Last Vital Signs Pulse 71 07/18/25 16:07 BP 138/82 07/18/25 16:07 Pulse Ox 98 07/18/25 16:07 Oxygen Delivery Method Room Air 07/18/25 16:07 Tobacco/Smoking Status: Tobacco use Status Tobacco use date assessed 03/08/25 07/18/25 16:08 Patient Tobacco Use Status Never used Tobacco 07/18/25 16:08 Tobacco use type Cigarette 07/18/25 16:08 e-Cigarette/Vaping Use Never Used 07/18/25 16:08 PHQ-9: PHQ-9 Score PHQ-9: Total score 24 07/18/25 16:25 Depression Screening Interpretation: Positive Thrive Assessment: Date of Thrive Assessment Date Thrive assessed 12/27/24 07/18/25 16:08 Currently or been in a relationship where the following occur: No concerns reported Narrative Physical Exam General: Cooperative, healthy appearing, comfortable, no acute distress and well developed Orientation: Patient oriented x3 Limitations: No limitations Head: Normal to inspection Ears: Sensory hearing loss on both ears with cochlear implants Nose: Normal external nose present Face and sinus: Normal facial exam Eyes: Appearance normal, both eyes and all related structures Neck: Normal visual inspection and Yes full ROM Respiratory: Normal respiratory effort and able to speak in complete sentences. Clear to auscultation bilaterally Cardiovascular: Regular rate and rhythm. Normal S1 and S2 GI: Normal to inspection. Soft to palpation and nontender Skin: No rashes or lesions noted Neuro: Patient oriented x3 Extremities: Normal to inspection Const General: alert and awake; No confusion Orientation/consciousness: No confusion HENMT Head: Yes normocephalic Ears: external ears normal and TM's normal bilaterally Face and sinus: Yes normal facial exam Mouth: moist mucous membranes Throat: Yes tonsils normal Eyes Conjunctivae: conjunctivae normal Pupils: Equal, round and reactive pupils present and Pupil accommodation reflex normal Direct Ophthalmoscopy: normal light reflex Neck Neck: No lymphadenopathy Thyroid: Thyroid normal Chest Chest palpation & inspection: normal inspection of the chest Resp Effort & Inspection: normal respiratory effort and no audible wheezes Auscultation: clear to auscultation bilaterally, no crackles, no wheezes and lung sounds not diminished Cardio Rate: regular rate Rhythm: regular rhythm Peripheral pulses: radial pulses present and dorsalis pedis present GI Palpation (GI): no masses Auscultation: normal bowel sounds and normoactive bowel sounds Rectal Exam - Female: deferred Skin General skin exam: no rashes or lesions noted Rashes: no rashes Neuro General: deep tendon reflexes 2+ bilaterally and No confusion Cranial nerves: Yes Equal, round and reactive pupils present, Yes Midline tongue present, Yes Normal hearing present and Yes Ability to bilaterally elevate shoulders present Cognition (Neuro): normal cognition Gait exam (Neuro): Normal gait present Motor exam (neuro): 5/5 motor strength present throughout Deep tendon reflexes (DTR's): Right brachioradialis reflex intensity grade: 2+, Left brachioradialis reflex intensity grade: 2+, Right patellar reflex intensity grade: 2+ and Left patellar reflex intensity grade: 2+ Extrem General: No edema Coding Level of Care Code Est Pt Prev Care 40-64y(48590) Diagnoses History of cochlear implant Z96.21 Gastroesophageal reflux disease without esophagitis K21.9 Esophagitis presence: without esophagitis Seasonal allergies J30.2 Hypercholesteremia E78.00 Annual physical exam Z00.00 Assessment & Plan Assessment & Plan (1) History of cochlear implant: Comment: 2012 Code(s): Z96.21 - Cochlear implant status Category: Surgical Plan: Continue to follow-up with ear nose and throat. Discussed about the need to have pneumonia vaccine and flu vaccine recommendation. (2) GERD (gastroesophageal reflux disease): Code(s): K21.9 - Gastro-esophageal reflux disease without esophagitis Category: Medical Qualifiers: Esophagitis presence: without esophagitis Qualified Code(s): K21.9 - Gastro-esophageal reflux disease without esophagitis Plan: Avoid the foods that causes that usually spicy foods, tomato products, juices, coffee, soda and foods that your sensitive to. After eating do not lie down, allow 3-4 hours before in lie down. And keep the head of bed above 30 degrees to avoid the acid from going up. (3) Seasonal allergies: Code(s): J30.2 - Other seasonal allergic rhinitis Category: Medical Plan: Patient follows up with Allergy and immunology placed on azelastine (4) Hypercholesteremia: Code(s): E78.00 - Pure hypercholesterolemia, unspecified Category: Medical Plan: Avoid fried foods, chicken skin, eggs, butter margarine, pastries and meat. Be it pork or beef they have a lot of cholesterol LDL goal of less than 130 and triglyceride of less than 150 (5) Annual physical exam: Code(s): Z00.00 - Encounter for general adult medical examination without abnormal findings Category: Medical Plan: Patient is advised to eat healthy, keep well hydrated, keep active and have adequate sleep. Plan Plan Patient was informed and verbally consented to the use of an ambient scribe for clinic note documentation during this visit. 1. Annual Physical Examination A request for a fasting blood test to check cholesterol and blood sugar was provided. The patient's mammogram is scheduled for July. The patient will continue to follow up with gastroenterology for colonoscopy in a few years. Vaccinations were discussed, including delaying the flu shot until after the [facility], a recommendation for the shingles vaccine which is available at pharmacies, and the need for a pneumonia vaccine post-surgically due to the cochlear implants. 2. Headache The patient reports a 2-3 week history of headaches. The neurological exam was unremarkable. The plan is to monitor symptoms and consider a CT scan of the head if they worsen, as an MRI is contraindicated due to the cochlear implants. The potential for tension headaches was discussed. 3. Endometriosis And Planned Hysterectomy The patient is scheduled for a hysterectomy on August 02 for management of bleeding and endometriosis. The option of an oophorectomy was discussed; it was explained that since the patient is postmenopausal, it would not affect bone health and is often performed to prevent future problems. The patient will discontinue norethindrone after the surgery. 4. Hypercholesterolemia The patient's last LDL was 130 mg/dL, with a goal of less than 130 mg/dL. Fasting labs will be checked to monitor cholesterol levels. 5. Allergic Rhinitis The patient follows with allergy and immunology and uses azelastine nasal spray. The spray is reportedly not helping with the sensation of smelling smoke. The plan includes continued environmental control. 6. Gastroesophageal Reflux Disease The patient's GERD is well-controlled with famotidine 40 mg daily. The patient will continue with the current regimen. 7. Obesity Weight management was discussed, including the medication Zepbound. Difficulties with insurance coverage and prior authorization were noted. The patient declined to have the prescription for Zepbound re-sent at this time. Discussion Notes I reviewed the plan for the patient's annual physical exam, which includes ordering fasting labs for cholesterol and glucose and ensuring the scheduled mammogram is completed. We discussed the upcoming hysterectomy for endometriosis and bleeding. I explained that since the patient is postmenopausal, removing the ovaries would not impact bone density and is a reasonable consideration to prevent future issues, though the final decision is up to the patient and the surgeon. Regarding the new onset of headaches, I noted the neurological exam was normal. I explained that we would monitor the headaches and that imaging with a CT scan would be considered if they worsen, clarifying that an MRI is contraindicated due to the cochlear implants. I also discussed that tension is a common cause of headaches. We extensively reviewed the immunization schedule. I advised delaying the influenza vaccine until after the surgery and informed the patient that the shingles vaccine is available at the pharmacy. I stressed the importance of receiving the pneumococcus vaccine post-operatively, as it is recommended for all individuals with cochlear implants. We also discussed weight loss medications, noting the insurance difficulties with Zepbound, and the patient decided not to pursue a prescription at this time. Patient Instructions - Please proceed with your scheduled mammogram in July. - I have given you a request for blood work. - This is a fasting test, so please do not eat or drink anything except water for 8-10 hours before the test. - For your recent headaches, you may take Tylenol as needed. - Please contact us if your headaches become worse. - Continue taking your famotidine (Pepcid) for acid reflux. - You should get your flu shot after your surgery in July. - The shingles vaccine is recommended for you and is available at your local pharmacy. - After your surgery, you will need to get a pneumonia vaccine because you have cochlear implants. - You can stop taking norethindrone after your hysterectomy. Medications: New tirzepatide (weight loss) (Zepbound) for 4 weeks 2.5 mg (0.5 mL) subcut QWEEK 2 mL 3RF Z68.35 - Body mass index [BMI] 35.0-35.9, adult
--- OUTSIDE RECORDS SUMMARY | 2025-07-18 18:39 | XMS_ITS | Clinical Summary ---
Author Organization [facility] Address [address] [facility] [address] [place] [address] Phone Care Team Providers Care Product Assembler Name Role Phone Jose De Jesus Ken MD Primary Care Provider [phone] Allergies Active Allergy Reactions Criticality Noted Date [...] history exists Adult Td,Tdap Booster 07/03/2033 07/03/2023 RSV VACCINE (1 - 1-dose 75+ series) 2043 HEPATITIS A VACCINES Aged Out No long [...] topic Medical Devices Not on file Insurance [place] [address] [place] [address] [place], [place] [address]O [facility] [place] [address] [place] [address] [place] [address] HMO [facility] HMO Care Teams Product Assembler Relationship Specialty Start Date End Date Jose De Jesus Ken MD [address] [place] [address] [address] [place] [phone] PCP - General Internal Medicine 07/23/19 Additional Source Comments The information contained in this document represents components of the legal health record. It is not the complete legal health record.[facility]
== END 2025-07-18 16:55 | disposition home or self-care (01) ==
LOC: HO.HMCH 16:05
PROVIDERS: PCP Internal Medicine; Visit Provider Internal Medicine
DX: Z00.00 Encounter for general adult medical examination without abnormal findings (principal); J30.2 Other seasonal allergic rhinitis; Z96.21 Cochlear implant status; K21.9 Gastro-esophageal reflux disease without esophagitis; E78.00 Pure hypercholesterolemia, unspecified

== ENCOUNTER 2025-07-30 07:34 | Outpatient (REF) | payer OTHER, SELFPAY ==
--- OUTSIDE RECORDS SUMMARY | 2024-06-24 16:15 | XMS_ITS | Encounter Summary ---
Author Organization [facility] Address [facility] [address] [place] [phone] Phone Care Team Providers Care Network Operations Center Engineer Name Role Phone Jose De Jesus Ken MD Primary Care Provider [phone] Encounter Details Date Type Department Care Team (Late st Contact Info) Description 06/24/2024 4:15 PM EST Hospital Encounter [facility] [address] [place] [address] Anh Barnes, PICTURE COPYIST [address] [place] [address] [email or web address] Social History Tobacco Use Types Packs/Day Years [...] clinician's provided indication for this examination in [facility]: * Respiratory illness, no prior imaging [...] clips. IMPRESSION: No acute abnormality. Anh Barnes [facility] IMG XR CHEST Final Result documented in this encounter Visit Diagnoses Not on filedocumented in this encounter Care Teams Network Operations Center Engineer Relationship Specialty Start Date End Date Po, Jose De Jesus Jean MD [address] [place] [address] PCP - General Internal Medicine 07/23/19 documented as of this encounter Additional Source Comments The information contained in this document represents components of the legal health record. It is not the complete legal health record.[facility]
--- OUTSIDE RECORDS SUMMARY | 2025-07-30 07:37 | XMS_ITS | Clinical Summary ---
Author Organization [facility] Address [address] [employer] [facility] [address] [place] [address] Phone Care Team Providers Care Health Sciences Department Chair Name Role Phone Jose De Jesus Ken MD Primary Care Provider [phone] Allergies Active Allergy Reactions Criticality Noted Date [...] Medical Devices Not on file Insurance [place] [address] [place] [address] [place] [address]O [facility] [place] [address] [place] [place] [address] HMO [facility] HMO Care Teams Health Sciences Department Chair Relationship Specialty Start Date End Date Jose De Jesus Ken MD [address] [place] [address] Drive [address] [place] [phone] PCP - General Internal Medicine 07/23/19 Additional Source Comments The information contained in this document represents components of the legal health record. It is not the complete legal health record.[facility]
== END 2025-07-30 07:35 | disposition home or self-care (01) ==
LOC: HO.MAMMO 07:34
PROVIDERS: PCP Internal Medicine; Visit Provider Internal Medicine
DX: Z12.31 Encounter for screening mammogram for malignant neoplasm of breast (principal)
CPT/HCPCS: 77063; 77067

== ENCOUNTER → 2025-07-30 07:45 | Outpatient (BNV) | payer OTHER, SELFPAY | PROVIDERS: PCP Internal Medicine; Visit Provider Internal Medicine | DX: Z12.31 Encounter for screening mammogram for malignant neoplasm of breast (principal) | CPT/HCPCS: 77063; 77067 ==